=== PATIENT | female | born 1940 | race Caucasian/White ===

== ENCOUNTER → 2023-07-05 14:14 | Outpatient (REF) | payer MEDICARE, OTHER, SELFPAY | LOC: HWRAD 14:14 | PROVIDERS: ATTENDING PHYSICIAN Physician Assistant Medical; FAMILY PHYSICIAN Internal Medicine | DX: R05.1 Acute cough (principal); J84.9 Interstitial pulmonary disease, unspecified | CPT/HCPCS: 71046 ==

== ENCOUNTER → 2023-07-12 16:13 | Outpatient (REF) | payer MEDICARE, OTHER, SELFPAY ==
[2023-07-12 16:43] LABS: % Basophils 0.7 % (0-2); % Eosinophils 0.2 % (0-6); % Immature Granulocytes 0.5 % (0-0.5); % Lymphocytes 14.7 % (20.5-51.1); % Monocytes 11.4 % (1.7-9.3); % Neutrophils 72.5 % (42.2-75.2); Absolute Lymphocytes 0.6 10^3/uL (1.2-3.4); Absolute Monocytes 0.5 10^3/uL (0.1-0.6); Absolute Neutrophils 3.1 10^3/uL (1.4-6.5); Hematocrit 26.5 % (37.0-47.0); Hemoglobin 9.1 g/dL (12.0-16.0); Mean Corp Hgb Conc. 34.3 g/dL (33.0-37.0); Mean Corpuscular Hgb 36.3 pg (27.0-31.0); Mean Corpuscular Volume 105.6 fL (81.0-99.0); Mean Platelet Volume 9.8 fL (7.4-10.4); Nucleated Red Blood Cells % 0 %; Platelet Count 337 10^3/uL (130-400); Red Blood Cell Count 2.51 10^6/uL (4.20-5.40); Red Cell Dist. Width 22.4 % (11.5-14.5); White Blood Cell Count 4.2 10^3/uL (4.8-10.8)
[2023-07-12 16:47] LABS: Urine Albumin Negative (Neg - Trace); Urine Bilirubin Negative (Negative); Urine Character Clear (Clear); Urine Color Yellow; Urine Glucose Negative (Negative); Urine Ketone Negative (Negative); Urine Leukocyte Negative (Negative); Urine Nitrite Negative (Negative); Urine Occult Blood Negative (Negative); Urine Urobilinogen Negative (Neg - 1+)
[2023-07-12 16:58] LABS: ALT (SGPT) 33 U/L (0-35); AST (SGOT) 39 U/L (14-36); Albumin 3.8 g/dl (3.5-5.0); Alkaline Phosphatase 99 U/L (38-126); Blood Urea Nitrogen 27 mg/dl (7-17); Calcium 9.7 mg/dl (8.4-10.2); Carbon Dioxide 24 mmol/L (22-30); Chloride 103 mmol/L (98-107); Glucose 135 mg/dl (70-99); Sodium 134 mmol/L (135-145); Total Bilirubin 0.7 mg/dl (0.2-1.3); Total Protein 6.2 g/dl (6.3-8.2)
[2023-07-12 17:04] LABS: Erythrocyte Sed Rate 58 mm/hour (0-20)
[2023-07-12 17:06] LABS: Complement C3 139 mg/dl (88-165); Urine Squamous Cell 0-2 /LPF (Few)
[2023-07-12 17:07] LABS: Urine Red Blood Cell None Seen /HPF (0-2); Urine White Cell 0-2 /HPF (0-5)
[2023-07-12 17:08] LABS: Protein/creatinine Ratio 0.3; Urine Protein 10 mg/dl
[2023-07-12 17:31] LABS: Anisocytosis 2+; Macrocytosis 2+; Normal RBC Morphology No; Ovalocytes 1+; Stomatocytes 2+
[2023-07-15 01:34] LABS: Myeloperoxidase Antibody 50 AU/mL (0-19)
== END ==
LOC: REG 16:13
PROVIDERS: ATTENDING PHYSICIAN Internal Medicine Rheumatology; FAMILY PHYSICIAN Internal Medicine
DX: L92.9 Granulomatous disorder of the skin and subcutaneous tissue, unspecified (principal); M1A.9XX0 Chronic gout, unspecified, without tophus (tophi); M31.7 Microscopic polyangiitis; M47.816 Spondylosis without myelopathy or radiculopathy, lumbar region; M79.7 Fibromyalgia; M81.0 Age-related osteoporosis without current pathological fracture; R20.0 Anesthesia of skin; Z68.42 Body mass index [BMI] 45.0-49.9, adult
CPT/HCPCS: 36415; 80053; 81003; 81015; 82570; 83516; 84156; 85025; 85652; 86140; 86160

== ENCOUNTER 2023-07-19 21:14 | Inpatient (IN) | payer MEDICARE, OTHER, SELFPAY ==
[2023-07-19 14:06] VITALS: BP 123/71
[2023-07-19 14:37] LABS: ALT (SGPT) 30 U/L (0-35); AST (SGOT) 33 U/L (14-36); Albumin 3.8 g/dl (3.5-5.0); Alkaline Phosphatase 92 U/L (38-126); Blood Urea Nitrogen 28 mg/dl (7-17); Calcium 9.2 mg/dl (8.4-10.2); Carbon Dioxide 22 mmol/L (22-30); Chloride 104 mmol/L (98-107); Glucose 133 mg/dl (70-99); Potassium 4.7 mmol/L (3.5-5.1); Sodium 136 mmol/L (135-145); Total Bilirubin 0.8 mg/dl (0.2-1.3); eGFR 45.48
[2023-07-19 17:39] VITALS: BP 144/71
[2023-07-19 17:41] VITALS: BMI 40.5
[2023-07-19 18:00] VITALS: BP 135/69
--- NOTE | 2023-07-19 18:08 | EDRN ---
Dr. Clements in room w/pt at this time.
--- NOTE | 2023-07-19 18:23 | ED.GENMED ---
History of Present Illness
General
Chief Complaint: Abnormal Lab Value
Source: patient
Exam Limitations: none
Time Seen by Provider: 07/19/23 17:24
Nursing documentation reviewed up to this point in time: agreed with
Travel History
Have you had any contact with someone who has COVID-19?: No
Do you have any symptoms of coronavirus? Fever > 100 degrees, chills, cough, shortness of breath, sore throat, loss of taste or smell, muscle aches, or headache?: No
History of Present Illness
History of Present Illness:
Patient presents to ED secondary to worsening shortness of breath with exertion over the past 2 weeks, along with recent outpatient blood work which revealed decreasing hemoglobin. Patient denies fever or chills. Denies coughing. Denies
dizziness. Denies weakness. Denies chest pain. Denies nausea, vomiting, or diarrhea. Denies leg pain or swelling. Denies back pain. Of note, patient was diagnosed with pulm embolism in May, and has been taking Eliquis since then. In
addition, patient is currently under treatment secondary to vasculitis diagnosed 2 years ago. As such, patient has had shortness of breath in the past, but states that her symptoms currently are worse than what she has experienced in the past.
Past History
Past History
ED Past Medical History: HTN, Hypercholesterolemia and Other (anemia)
ED Past Surgical History: None
Social History
Tobacco: Non-smoker
Personal:
Living: with family
Employment: Employed
Review of Systems
Review of Systems
Allergies reviewed?: Yes
All Other Systems: ROS reviewed and negative except as documented in HPI and ROS
Constitutional: Reports no symptoms
EENT: Reports no symptoms
Respiratory: Reports trouble breathing
Cardiac: Reports no symptoms
ABD/GI: Reports no symptoms
Musculoskeletal: Reports no symptoms
Skin: Reports no symptoms
Neurological: Reports no symptoms
Phy Exam
Physical Exam
Physical Exam:
Physical Exam
General: no apparent distress, not acutely ill. afebrile
Head: nc/at. eomi
Neck: supple. no meningeal signs.
Heart: s1/s2 regular rate and rhythm, no murmur. equal radial pulses.
Lungs: no acute respiratory distress. clear bilaterally
Abdomen: normal bowel sounds. not tender. rectal exam (CAMDEN Garcia, at bedside): brown stool, trace heme positive
Neuro: alert and oriented. no focal neurological deficits
Skin: no rash
Psychiatric: well kept. interactive and cooperative
Extremities: no edema. no calf tenderness.
Course
Orders/Labs/Results
Orders:
Orders
07/19/23 Breakfast
Clear Liquid
At Your Request: Full Participation
07/19/23 14:16
Type+Screen Urgent
Comprehensive Metabolic Panel Urgent
Ferritin Urgent
Comment: ADD ON
Iron Urgent
Comment: ADD ON
Total Iron Binding Urgent
07/19/23 19:05
Electrocardiogram (*1) Urgent
Reason for Study: Shortness of Breath
EKG- Treatment ONCE
07/19/23 19:20
NT-proBNP Urgent
Comment: ADD ON
Troponin I Urgent
07/19/23 19:26
CR Chest - 2 Views Urgent
Comment:
Reason For Exam: sob
07/19/23 19:27
Add On- LAB Urgent
Tests Added?: ProBNP
07/19/23 19:55
Dexamethasone Sod Phosphate [Decadron] 6 mg IV NOW STA
07/19/23 19:56
0.9% Sodium Chloride 500 ml [Nss] 500 ml IV BOLUS
07/19/23 19:58
Add On- LAB Urgent
Tests Added?: ferritin, TIBC, iron
07/19/23 20:49
Admit/Transfer Patient As Directed
Co-Sign Provider:
Level of Care: Inpatient admission
Assign to:: Medical/Surgical
Physician / Group: [facility]
Diagnosis: anemia
Reason for Hospitalization: symptomatic anemia
Expected length of stay greater than two midnights?: Yes
ELOS- Estimated Length of Stay in days: 3
I certify the patient meets the requirements for IP care: Yes
07/19/23 20:50
Code Status As Directed
Resuscitation Status: Full Code
07/19/23 21:21
0.9% Sodium Chloride 1000 ml [Nss] 1,000 ml IV 80 mls/hr
Dextrose 50%-Water [Dextrose 50% Syringe] 12.5 grams IV [id number] PRN
Glucagon [GlucaGen] 1 mg IM PRN PRN
Pantoprazole [Protonix IV] 40 mg IV Q12
07/19/23 21:21
Consult Hematology [HEMATOLOGY CONSULT] Routine
Consulting Provider: Michael Hammond
Was physician already notified: Yes
Reason for consult: GI bleed, on eliquis for recent PE
GASTROINTESTINAL CONSULT Routine
Consulting Provider: Yakelin Mcdaniel
Was physician already notified: Yes
Reason for consult: GI bleed , on eliquis
VTE Contraindication Routine
VTE Mechanical Device Contraindication: DVT lower extremity
Pharmocologic Contraindication: Medical Contraindication
Activity As Directed
Activity Level: Out of Bed-Early Mobility
Bedside Glucose Monitoring As Directed
Frequency: AC&HS
Comment: Change to q6h if pt on TPN, tube feeding or not eating
INT (Intravenous Needle Therapy) As Directed
Comment: Place 2 IV catheters of the largest bore possible until stable
Orthostatic Vital Signs As Directed
Orthostatic VS Frequency: Now
Comment: then every four hours for twenty-four hours
Vital Signs As Directed
Frequency: Per unit guidelines
07/19/23 22:00
Melatonin 5 mg PO HS
07/19/23 23:06
H&H Q8H
07/20/23 Breakfast
NPO
Allow oral meds: No
Allow clear liquids: 4hrs prior to procedure
NPO with Ice Chips: Yes
Comment: may have unrestricted clear liquid up to 4 hrs prior to scheduled procedure
07/20/23 06:09
Basic Metabolic Panel IN AM
Complete Blood Count/No Diff IN AM
Folate IN AM
Glycohemoglobin (HgbA1c) IN AM
Magnesium IN AM
Phosphorus IN AM
TSH IN AM
Vitamin B12 IN AM
07/20/23 07:30
Insulin Aspart Corrective Mod [Novolog Flexpen-Moderate Resistance] See Protocol SC AC
07/20/23 08:00
Allopurinol [Zyloprim] 100 mg PO DAILY
Amlodipine [Norvasc] 5 mg PO DAILY
Atorvastatin [Lipitor] 10 mg PO DAILY
Azathioprine [Imuran] 50 mg PO BID
Metoprolol Xl [Toprol Xl] 50 mg PO DAILY
Prednisone [Deltasone] 10 mg PO DAILY
Abnormal Lab Results
07/19/23
14:16
BUN 28 H mg/dl
(7-17)
Creatinine 1.2 H mg/dL
(0.6-1.0)
Glucose 133 H mg/dl
(70-99)
Iron 192 H ug/dl
(37-170)
TIBC 250 L ug/dl
(265-497)
% Saturation 76 H %
(20-50)
Ferritin 747.0 H ng/ml
(11.1-264.0)
Total Protein 6.0 L g/dl
(6.3-8.2)
07/19/23 14:16
Vital Signs
Initial and Last Documented VS:
Initial Vital Signs
Temp Pulse Resp BP Pulse Ox
98.0 F 86 16 123/71 98
07/19/23 14:06 07/19/23 14:06 07/19/23 14:06 07/19/23 14:06 07/19/23 14:06
Last Documented Vital Signs
Temp Pulse Resp BP Pulse Ox
97.8 F 97 18 156/90 97
07/20/23 14:50 07/20/23 14:50 07/20/23 14:50 07/20/23 14:50 07/20/23 14:50
MDM/Problems Addressed
MDM/Problems Addressed:
During short ambulation ED, patient noted to become dyspneic with increased respiratory rate as well as hypoxia (82% on room air), which improved upon returning to her stretcher. Patient presenting symptoms may be factorial, including underlying
vasculitis along with ongoing anemia. As such, patient will be admitted for further evaluation and treatment.
*EKG
Interpreted by ED Provider?: Yes
EKG Intrepretation Date: 07/19/23
Interpretation: normal
Heart Rate: 71
Rate: normal
Rhythm: sinus
[place]: normal axis
Interval: normal interval
QRS Pattern: normal QRS
*Critical Care Note
Total Time (30-74mins, 75-104mins- exclusive of procedures): Not Applicable
ED Attending Note
-
Portions of this chart may have been created with voice recognition software.� Occasional wrong word or��sound alike� substitutions may have occurred due to the inherent limitations of voice recognition software.
Discharge Plan
Departure
Patient Disposition: Admit
Date of Disposition: 07/19/23
Time of Disposition: 19:57
Admit to: Telemetry
Presentation/result/management discussed w/ accepting MD/DO: Hospitalist
Discharge Problem:
Hypoxia, Anemia
Interventions
Interventions:
*Risk Screen - Suicide Last Done: 07/20/23 13:02
*General Assessment Last Done: 07/19/23 17:42
*Neglect/Abuse Screening Last Done: 07/19/23 17:42
ED- Fall Risk Assessment Last Done: 07/19/23 17:43
*ED COVID-19 Vaccine History Last Done: 07/20/23 13:02
*Nursing Disposition Last Done: 07/20/23 12:50
Discharge Date and Time
Discharge Date/Time: 07/20/23 12:51
--- NOTE | 2023-07-19 18:52 | EDRN ---
This RN ambulated pt on POX in hallway. Pt ambulated using her walker. Pt was able to ambulated from her room #36 to doctor area w/out difficulty. Pt was okay (unable to get a pulse ox while she was ambulating due to bad pleth) until she reached
outside of room #37. Pt became very SOB w/ increased work of breathing. Pt had to stop walking to catch her breath. Pt was able to make it to her stretcher in room #36 and sit and lie down but still w/ increase WOB and tachypnea. Pt was still enough
to get a pulse ox that was initially 83% on room air and slowly climbed to 94% all w/ good pleth over next minute w/ breathing easier for pt and decreased BPM (breaths per minute).
[2023-07-19 19:00] VITALS: BP 115/62
[2023-07-19 19:54] LABS: Troponin I 0.026 ng/ml
[2023-07-19] MEDS: NSS 500 IV (20:11)
[2023-07-19] MEDS: DECADRON 6 MG IV (20:12)
[2023-07-19 20:19] LABS: NT-proBNP 282 pg/ml
[2023-07-19 20:50] LABS: Iron 192 ug/dl (37-170)
[2023-07-19 21:01] LABS: Percent Saturation 76 % (20-50); Total Iron Binding Capacity 250 ug/dl (265-497)
--- NOTE | 2023-07-19 21:01 | HPS.HSE ---
Family Physician
-
Family Physician: Yamila Aquino
Chief Complaint
-
Generalized weakness and fatigue
History of Present Illness
83-year-old female who was diagnosed with DVT and PE in May of this year, also history of diabetes, microscopic polyangiitis and vasculitis, presented to the hospital complaining of generalized weakness, fatigue and his availability over the
last couple months but progressively worsening the last few days, denies any fever or chills or cough or congestion, admits she is not able to do what she used to routinely. Anything make you tired and need to take a break.
Look like in May diagnosed with DVT and PE while he was in the hospital for chronic diarrhea since recently seen in CT scan.
Denies any discomfort during right side chest pain or shortness of breath or cough or congestion, she has no recollection of any fresh rectal bleed no change in stool color.
No sick contacts or recent travel.
She is on Eliquis for DVT.
Workup in the ER basically showed hemoglobin around 9 while in May was more than 12, also blood stool was positive in ER.
She is Jehovah witness, declining any kind blood and blood product transfusion.
She had colonoscopy many years ago followed by [facility] recently.
Medical History
Past Medical History
Past Medical History: Reports Other
Additional Past Medical History:
Past medical history reviewed:
Osteoporosis
Gout
Fibromyalgia
Diabetes mellitus on metformin
Dyslipidemia
Connective tissue disease including microscopic polyangiitis, vasculitis, uveitis.
Obesity
Chronic kidney disease stage II-III
Rosacea
Right side facial skin cancers, squamous cell and plan for Mohs procedure and all of July.
Actinic keratosis
Sleep apnea off CPAP,
Surgical history:
Colonoscopy many years ago
Total abdominal hysterectomy with BSO
Ostectomy
Right total knee replacement
Cataract surgery bilaterally
(Resection
Fusion of the right wrist.
Left wrist pain resection
Large aneurysm repair
[facility] procedure of the left inferior eyelid solitary keratosis.
Social history: Lives with her daughter and her daughter's family, no smoking or alcohol use.
Family history: Reviewed and noncontributory
Past Surgical History: Reports Other
Social History
Unable to obtain full social history at this time due to: Other
Family History
Family History: Other
Allergies / Home Medications
Allergies reflects when Allergies were last updated in [facility].
Home Medications with original date entered in [employer]
Allergy/Medication List:
Allergies
Allergy/AdvReac Type Severity Reaction Status Date / Time
carisoprodol [From Soma] Allergy stomach Verified 05/18/23 11:36
problems
cefazolin Allergy Itching Verified 05/18/23 11:36
gatifloxacin [From Tequin] Allergy stomach Verified 05/18/23 11:36
problems
lisinopril [From Prinivil] Allergy stomach Verified 05/18/23 11:36
problems
loratadine [From Claritin] Allergy aggrevates Verified 05/18/23 11:36
BP
piroxicam [From Feldene] Allergy stoamch Verified 05/18/23 11:36
issue
pravastatin [From Pravachol] Allergy MUSCLE Verified 05/18/23 11:36
PAIN,AGGRAVATES
FIBROMYALGIA
simvastatin [From Zocor] Allergy MUSCLE Verified 05/18/23 11:36
PAIN,AGGRAVATES
FIBROMYALGIA
strawberry Allergy THROAT Verified 05/18/23 11:36
CLOSES
tetracycline Allergy stomach Verified 05/18/23 11:36
problems
tramadol HCl [From Ultram] Allergy Difficulty Verified 05/18/23 11:36
breathing,hallucination
watermelon Allergy THROAT Verified 05/18/23 11:36
CLOSES
hayfever Allergy sneezing, Uncoded 05/18/23 11:36
eye
irritation
pain meds Allergy Hallucinations,difficulty Uncoded 05/18/23 11:36
breathing
Home Medications
allopurinol 100 mg tablet 100 mg PO DAILY Gout 12/29/19
melatonin 5 mg tablet 5 mg PO HS Sleep 12/29/19
metoprolol succinate 50 mg tablet,extended release 24 hr 50 mg PO DAILY Blood pressure 12/29/19
amlodipine 5 mg tablet 5 mg PO DAILY Blood Pressure 05/18/23
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
cholecalciferol (vitamin D3) 25 mcg (1,000 unit) tablet 25 mcg PO DAILY Supplement 05/18/23
famotidine 20 mg tablet 20 mg PO BID Gastrointestinal Issue 05/18/23
metformin 500 mg tablet 500 mg PO BID Diabetes 05/18/23
pitavastatin calcium 2 mg tablet (Livalo) 2 mg PO DAILY High Cholesterol 05/18/23
apixaban 5 mg tablet 5 mg PO BID 07/19/23
prednisone 5 mg tablet 10 mg PO DAILY 07/19/23
Review of Systems
-
A 12 point ROS was completed and negative except as noted: Yes
Physical Exam
Vital Signs
Vital Signs
Temp Pulse Resp BP Pulse Ox
98.0 F 75 19 144/71 100
07/19/23 14:06 07/19/23 17:45 07/19/23 17:45 07/19/23 17:39 07/19/23 17:46
Physical exam:
General: Pale looking, awake, alert and oriented x3, not in distress and holds appropriate conversation.
HEENT: Right cheek skin lesion, noted discharge no active discharge, ecchymosis or bruising, moist lips, tongue and mucous membrane.
Eyes: No discharge or red conjunctiva, no nystagmus, pupils are reactive and equal
Neck:Supple, no JVD no bruit no goiter.
Respiratory: Normal AP contour and diameter, normal chest wall movement, normal respiratory effort, no respiratory distress,
Lungs: Good air entry bilaterally, no wheezing or rhonchi, no rales or crackles
Heart: S1, S2 regular, normal rate, no added sound.
Gastrointestinal: Positive bowel sounds, soft, nontender, no guarding or rigidity or organomegaly
Musculoskeletal: , no chest wall abnormality or tenderness. All joints and extremities have good range of motion, no muscle tenderness or any joint swelling or tenderness.
Extremities: No pitting edema, good peripheral pulses, good range of motion
Skin: Warm and dry, no ulceration, normal color.
Neurological: Awake, alert and oriented x3, no facial droop speech clear and comprehensive, good muscle tone, normal sensory and motor function
Psychiatric: Normal mood, normal thought and judgment, normal affect,
Physical Exam
General: Other
Laboratory Results
-
07/19/23 14:16
Laboratory Results
Total Bilirubin 0.8 mg/dl (0.2-1.3) 07/19/23 14:16
AST 33 U/L (14-36) 07/19/23 14:16
ALT 30 U/L (0-35) 07/19/23 14:16
Alkaline Phosphatase 92 U/L (38-126) 07/19/23 14:16
Troponin I 0.026 ng/ml 07/19/23 19:20
chest x-ray: No acute cardiopulmonary normality.
EKG showed normal sinus rhythm rate around 71, [place] 168, QTc 423 otherwise no acute abnormality
Data Reviewed
-
Diagnostic Radiology: Image Personally Visualized and interpreted and Discussed with Patient
Medical Tests (Nuc Med, Echo, EKG etc): Image Personally Visualized and interpreted and Discussed with Patient
Lab Data: Labs Reviewed by me and Discussed with Patient
Old Records: Reviewed
Impression/Plan
-
IMPRESSION:
83-year-old female presented to the hospital with fatigue and generalized weakness likely secondary to anemia and GI blood loss anemia could be a possibility other causes need to be considered,,, she was diagnoses with embolism and DVT
anticoagulated on Eliquis beginning of May of this year.
Acute blood loss anemia, hemoglobin was more than 12 in May today is around 9.
GI bleed, likely triggered by being on Eliquis
Dilaudid active pulm embolism as she has no shortness of breath or tachycardia or hypoxia.
Infectious cause may need to be considered rule out
Chronic kidney disease
Diabetes
Hypertension
Obesity
Connective tissue disease including polyangiitis and vasculitis.
PLAN:
Close monitoring
Repeat H&H
She is Jehovah witness and declining any kind of blood or blood product transfusion
IV fluid
GI consult
Clear liquids for now and n.p.o. after midnight
Iron panel was done and reviewed and iron level is 192 saturation 76.
B12 and folic acid
Protonix IV twice daily
Hold Eliquis, unfortunately was diagnosed with PE recently, this can be normal concerning, but as she has no evidence of active pulm embolism therefore we will get hematology consult to address this either restarted to monitor or may consider IVC
filter will defer to hematology.
Patient sent from otology's office
Monitor blood sugar
Monitor vital sign.
All discussed with the patient in detail and expressed understanding
CODE STATUS full code
DVT prophylaxis avoid pharmacological anticoagulation because of active bleeding also avoid SCD was sedated because of recent DVT.
[2023-07-19] MEDS: MELATONIN 5 MG PO (21:45)
[2023-07-19] MEDS: PROTONIX IV 40 MG IV (21:45)
[2023-07-19] MEDS: NSS 1000 IV (21:47)
[2023-07-19 21:51] VITALS: BP 143/65
[2023-07-19 23:28] LABS: Hematocrit 23.3 % (37.0-47.0); Hemoglobin 8.3 g/dL (12.0-16.0)
--- NOTE | 2023-07-20 02:30 | EDRN ---
Report received, patient sleeping, call de paz in reach will continue to monitor
[2023-07-20] MEDS: NSS (PRESERVATIVE FREE) IV (03:08)
[2023-07-20 06:24] LABS: Hematocrit 24.1 % (37.0-47.0); Hemoglobin 8.5 g/dL (12.0-16.0); Mean Corp Hgb Conc. 35.3 g/dL (33.0-37.0); Mean Corpuscular Hgb 37.1 pg (27.0-31.0); Mean Corpuscular Volume 105.2 fL (81.0-99.0); Mean Platelet Volume 9.9 fL (7.4-10.4); Platelet Count 250 10^3/uL (130-400); Red Blood Cell Count 2.29 10^6/uL (4.20-5.40)
[2023-07-20 06:33] LABS: Blood Urea Nitrogen 22 mg/dl (7-17); Carbon Dioxide 23 mmol/L (22-30); Chloride 109 mmol/L (98-107); Estimated Creatinine Clearance 51 ml/min; Glucose 146 mg/dl (70-99); Magnesium 1.8 mg/dl (1.6-2.3); Phosphorus 3.7 mg/dl (2.5-4.5); Sodium 136 mmol/L (135-145)
[2023-07-20 06:34] VITALS: BP 155/68
--- NOTE | 2023-07-20 06:35 | EDRN ---
Patient ambulated to the restroom to urinate, provided her with a new brief, back in bed resting comfortably with call de paz in reach, vital signs checked and stable, patient with no further needs.
[2023-07-20 06:40] LABS: White Blood Cell Count 2.3 10^3/uL (4.8-10.8)
[2023-07-20 07:03] LABS: TSH 0.51 uIU/ml (0.47-4.68)
[2023-07-20 07:38] LABS: Folate 11.4 ng/ml (2.76-20); Vitamin B12 > 1000 pg/ml (239-931)
[2023-07-20 07:55] VITALS: BP 128/61
[2023-07-20 07:58] VITALS: BMI 39.2
--- NOTE | 2023-07-20 08:03 | CON.GI ---
Addendum entered and electronically signed by Yakelin Mcdaniel MD 07/20/23 20:44:
correction to my note below she is for EGD and colonoscopy (not Wed) with bowel prep tomorrow, after Eliquis wash out and she had regular meal today
Addendum entered and electronically signed by Yakelin Mcdaniel MD 07/20/23 10:19:
I saw and examined the patient.
The PRIVATE WATCHMAN's note was reviewed and I agree with the note.
Comment: This is a 83-year-old female past with recent history of DVT and PE in May was initially treated with heparin and then started on Eliquis follows up with Dr. Edgar, vasculitis currently on chronic steroids and azathioprine sees
rheumatology and has received Rituxan in the past, CDI. She also has a history of anemia noted input from hematology has received IV iron and Procrit in 2020 ( Jehovah witness no blood products). Rest of past medical history as below who presents
with fatigue and is noted to have anemia and trace OB positive stool. She denies any rectal bleeding or melena.
Assessment and plan anemia likely multifactorial from probable chronic GI blood loss but iron studies more consistent with anemia of chronic disease. She has received iron infusions and Procrit in 2020 with good response. Will need to rule out
chronic GI blood loss from probable angiectasias vs neoplasm vs PUD. will schedule her for endoscopy and colonoscopy on Wednesday after Eliquis washout her last dose of Eliquis yesterday a.m. dose, if neg will need capsule endoscopy also as OP.
Currently has no overt active bleeding. On famotidine will start her on PPI for possible peptic ulcer disease from chronic steroid use. She never had an endoscopy last [facility] was over 10 years ago. Defer decision for bridging with heparin versus
Lovenox given her recent history of DVT and PE per hematology if she does start heparin will stop it for 4 hours prior to procedures.
Addendum entered and electronically signed by Annie Shook NP 07/20/23 09:23:
Noted with diffuse hepatic steatosis on prior CT imaging, along with obesity and diabetes. LFT's are normal along with normal platelets. Fib-4 score 1.95 excluding advanced Fibrosis but score may be affected with her age. Would benefit from
outpatient Fibroscan/GI eval.
Original Note:
Consultation
-
Date/Time Consultation Requested: 07/19/2023 @ 21:21
Date/Time Consultation Performed: 07/20/2023 @ 08:30
Requesting Provider: Dr. Indigo Holloway
Performing Provider: DEDE Lema; Dr. Mcdaniel
Reason for Consultation: gi bleed on eliquis
Medical History
Chief Complaint / HPI
Chief Complaint: generalized weakness, fatigue
History of Present Illness:
The patient is an 83-year-old female with a past medical history significant for recent DVT/PE on Eliquis (May 2023), diabetes type 2, microscopic polyangiitis and vasculitis on chronic prednisone, gout, osteoporosis, fibromyalgia, hyperlipidemia,
chronic kidney disease, sleep apnea, hx of ROD with evaluation in [address] Edgar, who presented to the emergency room with complaints of generalized weakness and fatigue. We are being asked to evaluate for GI bleed on Eliquis. The patient
reports that in the the fall she developed COVID and was treated with Paxlovid. She notes she had a subsequent upper respiratory infection was placed on amoxicillin and then subsequently developed diffuse diarrhea. She was evaluated for her
diarrhea and was found to be C. difficile positive. She also underwent a CT scan in May which showed a coincidental finding of PE. She did complete a course of oral vancomycin with improvement in her bowel habits. She was evaluated by
hematology and started on Eliquis for her blood clots. She notes since starting on Eliquis she has felt progressive fatigue, weakness, and decreased appetite. She notes that the symptoms have been progressively worse over the past few weeks and
she has had some mild shortness of breath as well. She was advised by her stock trader for further evaluation in the ER after outpatient blood work showed a dropping hemoglobin. She denies any signs of bleeding such as melena, hematochezia, or
hematemesis. She denies any significant abdominal pain, nausea, vomiting, dysphagia, odynophagia heartburn, unintentional weight loss, chest pain, dizziness, lightheadedness, or syncope. She notes a history of iron deficiency anemia in 2019 and
does follow with Dr. Edgar from hematology. She did require iron transfusions at that time and due to being a Judaism she declines blood transfusions. She notes that she was using Aleve infrequently prior to May but has not used
NSAIDs since being on Eliquis. She denies any history of peptic ulcer disease or GI bleeding. She reports remote history of colonoscopy and denies any polyps. She reportedly has been followed with Cologuard's that are negative. She denies any
prior EGD. She admits to taking prednisone chronically for the past 3 years for vasculitis and is currently on 10 mg/day. She denies any alcohol use, history of smoking, or drug use. She denies any family history of colon cancer or other GI
cancers or disorders. Routine labs on admission showed hemoglobin of 8.3, WBC 2.3, MCV 105, platelets 250,000, sodium 136, potassium 4.7, BUN 28, creatinine 1.2, glucose 133, serum iron 192, TIBC 250, iron saturation 76%, ferritin for 747, vitamin
B12 greater than thousand, folate 11.4, TSH 0.51, proBNP 282, troponin negative x 1, with normal LFTs. Chest x-ray was done showing no acute cardiopulmonary process. She was started on twice daily PPI, made n.p.o., admitted for further evaluation
by GI and hematology.
Past Medical History
Past Medical History: Fibromyalgia, GERD, HTN, Hypercholesterolemia, NIDDM and Other (Osteoporosis, gout, recent DVT/PE on Eliquis, connective tissue disorder, obesity, rosacea, actinic keratosis, squamous cell skin CA's status post Mohs procedure,
chronic kidney disease)
Past Surgical History: Appendectomy, Cholecystectomy, Gynecological (Total abdominal hysterectomy with BSO, ruptured ovarian cyst with removal), Orthopedic (Right total knee replacement) and Other (Bilateral cataract surgery, skin cancer extraction
(pending Mohs procedure))
Social History
Tobacco: Non-Smoker
Alcohol: None
Drug: None
Living: With Family
Family History
Family History: Reviewed & Not Pertinent
Allergies / Home Medications
Allergy/AdvReac Type Severity Reaction Status Date / Time
carisoprodol [From Soma] Allergy stomach Verified 05/18/23 11:36
problems
cefazolin Allergy Itching Verified 05/18/23 11:36
gatifloxacin [From Tequin] Allergy stomach Verified 05/18/23 11:36
problems
lisinopril [From Prinivil] Allergy stomach Verified 05/18/23 11:36
problems
loratadine [From Claritin] Allergy aggrevates Verified 05/18/23 11:36
BP
piroxicam [From Feldene] Allergy stoamch Verified 05/18/23 11:36
issue
pravastatin [From Pravachol] Allergy MUSCLE Verified 05/18/23 11:36
PAIN,AGGRAVATES
FIBROMYALGIA
simvastatin [From Zocor] Allergy MUSCLE Verified 05/18/23 11:36
PAIN,AGGRAVATES
FIBROMYALGIA
strawberry Allergy THROAT Verified 05/18/23 11:36
CLOSES
tetracycline Allergy stomach Verified 05/18/23 11:36
problems
tramadol HCl [From Ultram] Allergy Difficulty Verified 05/18/23 11:36
breathing,hallucination
watermelon Allergy THROAT Verified 05/18/23 11:36
CLOSES
hayfever Allergy sneezing, Uncoded 05/18/23 11:36
eye
irritation
pain meds Allergy Hallucinations,difficulty Uncoded 05/18/23 11:36
breathing
Medication Instructions Recorded
allopurinol 100 mg tablet 100 mg PO DAILY Gout 12/29/19
melatonin 5 mg tablet 5 mg PO HS Sleep 12/29/19
metoprolol succinate 50 mg 50 mg PO DAILY Blood pressure 12/29/19
tablet,extended release 24 hr
amlodipine 5 mg tablet 5 mg PO DAILY Blood Pressure 05/18/23
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
cholecalciferol (vitamin D3) 25 25 mcg PO DAILY Supplement 05/18/23
mcg (1,000 unit) tablet
famotidine 20 mg tablet 20 mg PO BID Gastrointestinal Issue 05/18/23
metformin 500 mg tablet 500 mg PO BID Diabetes 05/18/23
pitavastatin calcium 2 mg tablet 2 mg PO DAILY High Cholesterol 05/18/23
(Livalo)
apixaban 5 mg tablet 5 mg PO BID 07/19/23
prednisone 5 mg tablet 10 mg PO DAILY 07/19/23
Review of Systems
-
History Source: Patient
Constitutional: Reports Weight Gain and Fatigue
EENT: Reports No Symptoms
Respiratory: Reports No Symptoms
Cardiac: Reports No Symptoms
Abdomen/GI: Reports No Symptoms
: Reports No Symptoms
Musculoskeletal: Reports No Symptoms
Skin: Reports No Symptoms
Neurological: Reports Weakness
Vital Signs
Temp Pulse Resp BP Pulse Ox
98.7 F 78 17 114/56 95
07/20/23 07:55 07/20/23 07:55 07/20/23 07:55 07/20/23 07:55 07/20/23 07:55
Physical Exam
Exam
General: Well Developed, Well Nourished, No Apparent Distress and Other (Elderly, pale appearing female in no acute distress)
HEENT: Normocephalic, Anicteric and Atraumatic
Respiratory: Clear
Cardiac: S1/S2 and Regular Rhythm
Breast: Deferred by me
GI: Soft, Non Tender, Non Distended, Normal Bowel Sounds and Other (Obese abdomen)
Rectal: Other (Brown trace heme positive per ER physician)
Skin: Warm and Dry
Neuro: Awake, Alert and Oriented
Psych: Calm
Results
WBC 2.3 10^3/uL (4.8-10.8) L* 07/20/23 06:09
Hgb 8.5 g/dL (12.0-16.0) L 07/20/23 06:09
Hct 24.1 % (37.0-47.0) L 07/20/23 06:09
MCV 105.2 fL (81.0-99.0) H 07/20/23 06:09
Plt Count 250 10^3/uL (130-400) 07/20/23 06:09
Sodium 136 mmol/L (135-145) 07/20/23 06:09
Potassium 5.0 mmol/L (3.5-5.1) 07/20/23 06:09
Chloride 109 mmol/L (98-107) H 07/20/23 06:09
Carbon Dioxide 23 mmol/L (22-30) 07/20/23 06:09
BUN 22 mg/dl (7-17) H 07/20/23 06:09
Creatinine 1.0 mg/dL (0.6-1.0) 07/20/23 06:09
Calcium 9.0 mg/dl (8.4-10.2) 07/20/23 06:09
Total Bilirubin 0.8 mg/dl (0.2-1.3) 07/19/23 14:16
AST 33 U/L (14-36) 07/19/23 14:16
ALT 30 U/L (0-35) 07/19/23 14:16
Alkaline Phosphatase 92 U/L (38-126) 07/19/23 14:16
Diagnostic Image Results:
07/19/23 chest x-ray: No acute cardiopulmonary abnormalities
Prior GI Procedures:
EGD: None
Colonoscopy: Remote history of colonoscopy, per patient no polyps (record not available for review)
Assessment / Plan
-
The patient is an 83-year-old female with a past medical history significant for recent DVT/PE on Eliquis (May 2023), diabetes type 2, microscopic polyangiitis and vasculitis on chronic prednisone, gout, osteoporosis, hypertension, hyperlipidemia,
chronic kidney disease, sleep apnea, hx of ROD with evaluation in [address] Edgar, obesity, who presented to the emergency room with complaints of generalized weakness and fatigue. We are being asked to evaluate for GI bleed on Eliquis. She
was advised to go to the emergency room by her stock trader due to a drop in hemoglobin and ongoing symptoms suggestive of acute blood loss. Noted with a hemoglobin of 8.3 on admission with brown trace heme positive stool. Recently started on
Eliquis in May for new diagnosis of PE. She is also on chronic prednisone for management of vasculitis. She notes a history of iron deficiency anemia in 2020 requiring iron infusions and follows intermittently with hematology on a yearly
basis. She denies any signs of gross GI bleeding at this time. She is hemodynamically stable.
Problem list:
-Acute macrocytic anemia
-Recent diagnosis of PE on Eliquis May 2023
-History of vasculitis on chronic prednisone
-Elevated ferritin and iron saturation
-COLBY
-History of iron deficiency anemia in 2020 requiring iron transfusion
Other pertinent medical history:
-Gout
-Osteoporosis
-Hyperlipidemia
-Hypertension
-Sleep apnea
-Obesity
Recommendations:
-Etiology of anemia possibly multifactorial with iron studies suggesting anemia of chronic disease versus possible slow GI blood loss (peptic ulcer disease versus AVM versus other) versus other underlying hematologic disorder versus other.
-At this time we will await hematology recommendations regarding ongoing blood thinners for recent PE
-To discuss with hematology regarding timing for endoscopic evaluation due to her acute anemia she will need EGD and colonoscopy, likely inpatient given she needs to be on a blood thinner
-Trend H&H and transfuse for hemoglobin less than 7
-Agree with twice daily PPI
-Hold Eliquis; with brown trace heme positive stool okay to be on heparin or Lovenox to bridge for procedures, to defer management to hematology
-Okay for diet today, will change to clear liquid diet tomorrow
-Avoid NSAIDs
-Will follow
-
-
Thank you for consultation and allowing me to participate in the patient's care. Please call the reproduction technician GI physician during the after hours with any questions or concerns.
[2023-07-20] MEDS: NOVOLOG FLEXPEN-MODERATE RESISTANCE SC ×2 (08:17→19:28)
[2023-07-20 08:18] LABS: Glucose - Point of Care 147 mg/dl (70-99)
[2023-07-20] MEDS: ZYLOPRIM 100 MG PO (08:18)
[2023-07-20] MEDS: TOPROL XL 50 MG PO (08:18)
[2023-07-20] MEDS: DELTASONE 10 MG PO (08:18)
[2023-07-20] MEDS: NORVASC 5 MG PO (08:19)
[2023-07-20] MEDS: PROTONIX IV 40 MG IV ×2 (08:19→19:32)
[2023-07-20] MEDS: LIPITOR 10 MG PO (08:19)
[2023-07-20] MEDS: NSS (PRESERVATIVE FREE) 10 ML IV ×2 (08:19→19:32)
--- NOTE | 2023-07-20 08:49 | CON.ONC ---
Addendum entered and electronically signed by Becky Murray MD 07/20/23 13:13:
Patient seen and examined, agree w/ A&P per PEDIATRIC PSYCHOLOGIST as below
83 yo F, Evangelical, who presents with symptomatic anemia (weakness, fatigue). Labs show hgb 8.3, no iron deficiency (ferritin = 747).
She has been on Eliquis since early May, when she was diagnosed with PE/DVT, thought provoked by COVJOE and Cdiff. She's known to Dr. Edgar, and the plan was for 3 months of a/c, then stop.
Heme +
Would hold anticoagulation. She completed 2 months. Risks of bleeding currently outweigh clotting risk
Monitor CBC daily, would not give add'l iron, but would consider MINOR if anemia worsens
Continue folic acid
DVT ppx w/ SCDs
Await EGD, colonoscopy on Wednesday
Original Note:
Impression
Impression
Acute macrocytic anemia
Hx ROD secondary to intrapulmonary hemorrhage +ANCA vasculitis
Chronic steroid use
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
Acute blood loss anemia
+hemoccult stool
CKD
Obesity
Weakness/fatigue
Dyspnea on exertion
Squamous skin lesion to left cheek
Plan
Plan
3/5 Hgb 8.5 (baseline 12-14)
No blood products as Evangelical
Await Epo level, consider Epogen/Procrit
Monitor CBC, H/H closely
Hgb has normalized in the past with management of vasculitis
Continue Prednisone 10mg daily, Azathioprine 50mg
Continue PPI BID
Iron 192, TIBC, 250, %sat 76, ferritin 747
IV iron is not indicated at this time
Hemoccult stool trace positive
Eliquis being held for GI procedures
Would recommend holding all anticoagulation and monitoring
GI planning EGD/colonoscopy for Wednesday
We will follow.
Patient History
History of Present Illness
Sarahi Flowers is a pleasant 83 year old female who presented to the ER yesterday, 07/18, with complaints of progressive generalized weakness/fatigue and shortness of breath x2-3 weeks. She states she is unable to perform her normal daily activities
without requiring frequent rest breaks. She notices she has felt fairly weak since beginning Eliis in May. Denies falls. She denies pain, fever, chills, unintentional weight loss, N/V/D or evidence of bleeding. Denies melena, hematuria or
hemoptysis. She was recently hospitalized at the beginning of May 2023 with C. diff infection and incidental findings of right-sided pulmonary embolism and LLE DVT potentially provoked by COVID. Clots were unprovoked in the absence of trauma,
travel, or surgery. She was admitted, started on heparin gtt at the time, and discharged on Apixaban 5mg BID. She followed up with Dr. Edgar at [facility] last month. She states she has been compliant with anticoagulation. She is currently under
treatment for vasculitis which she states 'has calmed down'. She has no prior personal or family history of VTE. APLA testing was sent from the office. She is maintained on 10mg Prednisone daily and Azathioprine 50mg daily.
She was referred to [facility] originally in 2019 for anemia secondary to vasculitis. Patient is a Spiritism and, therefore, does not accept blood products. She was treated with IV iron and Procrit for support of her hemoglobin. She was
started on high dose steroids for vasculitis with resolution of ongoing blood loss and improvement of lab work. She received Rituxan weekly x4 with Rheumatology. She returned to [facility] in September 2022 for evaluation of leukocytosis. She was on
high-dose steroids at the time. Flow cytometry workup was negative and acute leukocytosis was, ultimately, suspected to be reactive with no further workup required.
Past-Medical/Surgical History
Squamous cell skin ca w/ plans for MOHs procedure (07/2023)
C.diff infection (05/2023)
Gout (Allopurinol)
Fibromyalgia
DM (Metformin)
Dyslipidemia
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
Obesity
CKD3
Rosacea
Actinic keratosis
ANALY, no CPAP
Colonoscopy many years ago
YOCASTA-BSO
Right total knee replacement
Cataract surgery bilaterally
Patient Medication
Medication Instructions Recorded Confirmed Last Taken Type
allopurinol 100 mg tablet 100 mg PO DAILY Gout 12/29/19 07/19/23 07/19/23 History
melatonin 5 mg tablet 5 mg PO HS Sleep 12/29/19 07/19/23 07/18/23 History
metoprolol succinate 50 mg 50 mg PO DAILY Blood pressure 12/29/19 07/19/23 07/19/23 History
tablet,extended release 24 hr
amlodipine 5 mg tablet 5 mg PO DAILY Blood Pressure 05/18/23 07/19/23 07/19/23 History
azathioprine 50 mg tablet 50 mg PO BID Autoimmune Disorder 05/18/23 07/19/23 07/19/23 History
cholecalciferol (vitamin D3) 25 25 mcg PO DAILY Supplement 05/18/23 07/19/23 07/19/23 History
mcg (1,000 unit) tablet
famotidine 20 mg tablet 20 mg PO BID Gastrointestinal Issue 05/18/23 07/19/23 07/19/23 History
metformin 500 mg tablet 500 mg PO BID Diabetes 05/18/23 07/19/23 07/19/23 History
pitavastatin calcium 2 mg tablet 2 mg PO DAILY High Cholesterol 05/18/23 07/19/23 07/19/23 History
(Livalo)
apixaban 5 mg tablet 5 mg PO BID 07/19/23 07/19/23 07/19/23 History
prednisone 5 mg tablet 10 mg PO DAILY 07/19/23 07/19/23 07/19/23 History
Active Medications
Generic Name Dose Route Start Last Admin
Trade Name Freq PRN Reason Stop Dose Admin
Allopurinol 100 mg 07/20/23 08:00 07/20/23 08:18
Allopurinol 100 Mg Tablet PO 08/17/23 07:59 100 mg
DAILY ROMMEL Administration
Amlodipine Besylate 5 mg 07/20/23 08:00 07/20/23 08:19
Amlodipine 5 Mg Tablet PO 08/17/23 07:59 5 mg
DAILY ROMMEL Administration
Atorvastatin Calcium 10 mg 07/20/23 08:00 07/20/23 08:19
Atorvastatin (Lipitor) 10 Mg Tablet PO 08/17/23 07:59 10 mg
DAILY ROMMEL Administration
Azathioprine 50 mg 07/20/23 08:00
Azathioprine 50 Mg Tablet PO 08/17/23 07:59
BID ROMMEL
Dextrose 12.5 grams 07/19/23 21:21
Dextrose 50% (0.5 Grams/Ml) 50 Ml Syringe IV 08/16/23 21:20
[id number] PRN
hypoglycemia
Protocol
Glucagon 1 mg 07/19/23 21:21
Glucagon 1 Mg Vial IM 08/16/23 21:20
PRN PRN
hypoglycemia
Protocol
Sodium Chloride 1,000 mls @ 80 mls/hr 07/19/23 21:21 07/19/23 21:47
Nss IV 1,000 mls
[id number] ROMMEL Administration
Insulin Aspart 0 units 07/20/23 07:30 07/20/23 08:17
Insulin Aspart Moderate Resistance 300 Units/3 Ml Pen.Injctr SC 08/17/23 07:29 Not Given
AC ROMMEL
Protocol
Melatonin 5 mg 07/19/23 22:00 07/19/23 21:45
Melatonin 5 Mg Tablet PO 08/16/23 21:59 5 mg
HS ROMMEL Administration
Metoprolol Succinate 50 mg 07/20/23 08:00 07/20/23 08:18
Metoprolol 50 Mg Extended Release Tablet PO 08/17/23 07:59 50 mg
DAILY ROMMEL Administration
Pantoprazole Sodium 40 mg 07/19/23 21:21 07/20/23 08:19
Pantoprazole Sodium 40 Mg/10 Ml Vial IV 08/16/23 21:20 40 mg
Q12 ROMMEL Administration
Prednisone 10 mg 07/20/23 08:00 07/20/23 08:18
Prednisone 10 Mg Tablet PO 08/17/23 07:59 10 mg
DAILY ROMMEL Administration
Sodium Chloride 0 flush 07/19/23 22:00
Sodium Chloride 0.9% (Flush) Syringe IV 08/16/23 21:59
PER PROTOCOL ROMMEL
Sodium Chloride 10 ml 07/19/23 22:00 07/20/23 08:19
Sodium Chloride 0.9% (Preservative Free) 10 Ml Vial IV 08/16/23 21:59 10 ml
BID ROMMEL Administration
Review of Systems
-
History Source: Patient, Coordinated Provider and Records
Constitutional: Reports No Appetite, Fatigue and Weakness
EENT: Reports No Symptoms
Respiratory: Reports Other (VIRAMONTES)
Cardiac: Reports No Symptoms
GI: Reports No Symptoms
Breast: Reports N/A
: Reports No Symptoms
Musculoskeletal: Reports No Symptoms
Skin: Reports No Symptoms
Neuro: Reports No Symptoms
Endocrine: Reports No Symptoms
Hematologic/Lymphatic: Reports No Symptoms
Allergy / Immunology: Reports No Symptoms
Psych: Reports No Symptoms
Physical Exam
-
Patient is resting comfortably on stretcher. tolerating clear liquids. Denies acute pain or difficulty breathing.
General: Well Developed, Well Nourished, No Apparent Distress, Comfortable and Conversant
HEENT: Other (left cheek skin cancer lesion scheduled for MOHs surgery); Negative Jaundice
Cardiology: S1 and S2
Pulmonary: Clear and Other (room air)
GI: Normal Bowel Sounds
Genito-Urinary: Deferred by me
Musculoskeletal: No Edema
Extremities: Pulses Present
Neurology: Non Focal
Skin: Warm, Dry and Other (pallor)
Hematologic / Lymphatic: No Petechiae and Other
Psych: Calm
Labs
Lab Results
WBC 2.3 10^3/uL (4.8-10.8) L* 07/20/23 06:09
RBC 2.29 10^6/uL (4.20-5.40) L 07/20/23 06:09
Hgb 8.5 g/dL (12.0-16.0) L 07/20/23 06:09
Hct 24.1 % (37.0-47.0) L 07/20/23 06:09
MCV 105.2 fL (81.0-99.0) H 07/20/23 06:09
MCH 37.1 pg (27.0-31.0) H 07/20/23 06:09
MCHC 35.3 g/dL (33.0-37.0) 07/20/23 06:09
RDW 23.0 % (11.5-14.5) H 07/20/23 06:09
Plt Count 250 10^3/uL (130-400) 07/20/23 06:09
MPV 9.9 fL (7.4-10.4) 07/20/23 06:09
Creatinine 1.0 mg/dL (0.6-1.0) 07/20/23 06:09
Vital Signs
Vital Signs
Temp Pulse Resp BP Pulse Ox
98.7 F 72 17 128/61 98
07/20/23 07:55 07/20/23 07:55 07/20/23 07:55 07/20/23 07:55 07/20/23 07:55
07/19/23 CXR No acute cardiopulmonary process.
[2023-07-20 08:56] LABS: Glycohemoglobin (HgbA1c) 7.6 % (4.0-5.6)
[2023-07-20] MEDS: IMURAN 50 MG PO ×2 (08:58→19:32)
[2023-07-20 10:06] LABS: INR 1.16; PT 14.7 Sec (11.4-14.6)
[2023-07-20 10:20] LABS: Uric Acid 6.5 mg/dl (2.5-6.2)
[2023-07-20] MEDS: FOLVITE 1 MG PO (10:28)
[2023-07-20] MEDS: NSS 1000 IV (10:28)
[2023-07-20 11:55] LABS: Glucose - Point of Care 179 mg/dl (70-99)
[2023-07-20] MEDS: NOVOLOG FLEXPEN-MODERATE RESISTANCE 1 UNITS SC (11:59)
--- NOTE | 2023-07-20 12:27 | W.PN.HOSP.TC ---
Today's Communication/Plan
-
Monitor hemoglobin
N.p.o. after midnight
Assessment / Plan
Assessment / Plan
Gen-AAOx3, NAD, morbid obesity
HEENT-NC, AT, anicteric, clear oral mm
Neck-supple
CV-reg, no M, +S1/S2
Lungs-clear B/L
Abd-soft, NT, ND
Ext-no edema
Musculoskeletal-no cyanosis, clubbing
Skin-warm and dry
Neuro-grossly non-focal
Psych-calm, cooperative
Symptomatic acute on chronic anemia -suspect subacute to chronic blood loss anemia. She is a Mandaeism, refusing blood transfusion. Monitor hemoglobin. No signs of iron deficiency on labs.
Subacute GI blood loss -appreciate GI input. Plan for EGD and colonoscopy tomorrow. Last dose of Eliquis was Wednesday morning. Continue IV Protonix twice daily. Hemoglobin relatively stable, 8.5 today. Will monitor.
Recent pulmonary emboli/DVT -diagnosed May of this year. Eliquis now on hold for GI bleed as above. CT of abdomen pelvis done in May confirmed right-sided pulmonary emboli. Doppler ultrasound in May showed occlusive thrombus in the
left posterior tibial, peroneal, superficial femoral veins and nonocclusive thrombus of the left popliteal vein.
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
Chronic leukopenia -counts are stable. Etiology unclear.
DM2 without hyperglycemia -hemoglobin A1c 7.6%. Glucose 146 this morning. She is on metformin at home. Currently on moderate resistance NovoLog scale.
Hyperlipidemia -on pitavastatin.
Essential hypertension -stable.
Gout -stable.
Fibromyalgia
History of C. difficile colitis -May 2023.
Morbid obesity due to excess calories
Full code
Anticipated Discharge: > 48 hours
Subjective/Interval History
-
Date of Service: July 20, 2023
Patient seen and examined. Currently eating lunch. No complaints.
Objective Data
-
Labs:
Laboratory Results
07/20/23 07/20/23
06:09 09:43
WBC 2.3 L*
Hgb 8.5 L
Hct 24.1 L
Plt Count 250
PT 14.7 H
INR 1.16
Sodium 136
Potassium 5.0
Chloride 109 H
Carbon Dioxide 23
BUN 22 H
Creatinine 1.0
Glucose 146 H
Calcium 9.0
Vital Signs:
Vital Signs
Temp Pulse Resp BP Pulse Ox
98.7 F 72 17 128/61 98
07/20/23 07:55 07/20/23 07:55 07/20/23 07:55 07/20/23 07:55 07/20/23 07:55
Review of Systems
-
History Source: Patient
All other systems: Reviewed and negative
[2023-07-20 13:05] VITALS: BP 156/90; BMI 40.4
[2023-07-20 14:50] VITALS: BP 156/90
[2023-07-20 17:41] LABS: Glucose - Point of Care 125 mg/dl (70-99)
[2023-07-20 21:22] LABS: Glucose - Point of Care 154 mg/dl (70-99)
[2023-07-20] MEDS: MELATONIN 5 MG PO (22:42)
[2023-07-20 23:25] VITALS: BP 144/78
[2023-07-21] MEDS: NSS 1000 IV (04:53)
[2023-07-21] MEDS: TYLENOL 650 MG PO (05:45)
[2023-07-21 06:58] LABS: Glucose - Point of Care 126 mg/dl (70-99)
[2023-07-21 07:10] VITALS: BP 135/69
[2023-07-21] MEDS: NOVOLOG FLEXPEN-MODERATE RESISTANCE SC ×2 (07:30→17:00)
[2023-07-21 08:15] LABS: % Basophils 0.6 % (0-2); % Eosinophils 1.2 % (0-6); % Immature Granulocytes 0.6 % (0-0.5); % Lymphocytes 33.3 % (20.5-51.1); % Monocytes 9.6 % (1.7-9.3); % Neutrophils 54.7 % (42.2-75.2); Absolute Lymphocytes 1.2 10^3/uL (1.2-3.4); Absolute Monocytes 0.3 10^3/uL (0.1-0.6); Absolute Neutrophils 1.9 10^3/uL (1.4-6.5); Hematocrit 23.3 % (37.0-47.0); Hemoglobin 8.1 g/dL (12.0-16.0); Mean Corp Hgb Conc. 34.8 g/dL (33.0-37.0); Mean Corpuscular Volume 106.4 fL (81.0-99.0); Mean Platelet Volume 10.3 fL (7.4-10.4); Nucleated Red Blood Cells % 0.6 %; Platelet Count 225 10^3/uL (130-400); Red Blood Cell Count 2.19 10^6/uL (4.20-5.40); Red Cell Dist. Width 23.9 % (11.5-14.5); White Blood Cell Count 3.5 10^3/uL (4.8-10.8)
--- NOTE | 2023-07-21 08:22 | W.PN.HOSP.TC ---
Addendum entered and electronically signed by Dru Montoya DO 07/21/23 08:36:
Patient obtained path report from the skin biopsy of her right cheek, showing squamous cell carcinoma. Follow-up with dermatology after discharge.
Original Note:
Today's Communication/Plan
-
Monitor hemoglobin
Aquaphor
Prep for colonoscopy tomorrow
Assessment / Plan
Assessment / Plan
Gen-AAOx3, NAD, morbid obesity
HEENT-NC, AT, anicteric, clear oral mm
Neck-supple
CV-reg, no M, +S1/S2
Lungs-clear B/L
Abd-soft, NT, ND
Ext-no edema
Musculoskeletal-no cyanosis, clubbing
Skin-warm and dry, right facial cheek lesion with scab
Neuro-grossly non-focal
Psych-calm, cooperative
Symptomatic acute on chronic anemia -suspect subacute to chronic blood loss anemia. She is a Mor[employer], refusing blood transfusion. Monitor hemoglobin. No signs of iron deficiency on labs. Hemoglobin 8.1 this morning.
Subacute GI blood loss -appreciate GI input. Plan for EGD and colonoscopy tomorrow. Last dose of Eliquis was Wednesday morning. Continue IV Protonix twice daily.
Recent pulmonary emboli/DVT -diagnosed May of this year. Eliquis now on hold for GI bleed as above. CT of abdomen pelvis done in May confirmed right-sided pulmonary emboli. Doppler ultrasound in May showed occlusive thrombus in the
left posterior tibial, peroneal, superficial femoral veins and nonocclusive thrombus of the left popliteal vein.
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
Chronic leukopenia -counts are stable. Etiology unclear.
DM2 without hyperglycemia -hemoglobin A1c 7.6%. Glucose 126 this morning. She is on metformin at home. Currently on moderate resistance NovoLog scale.
Right facial skin cancer -awaiting Mohs procedure at the end of the month. She is requesting Aquaphor twice daily, order placed.
Hyperlipidemia -on pitavastatin.
Essential hypertension -stable.
Gout -stable.
Fibromyalgia
History of C. difficile colitis -May 2023.
Morbid obesity due to excess calories
Full code
Anticipated Discharge: > 48 hours
Subjective/Interval History
-
Date of Service: July 21, 2023
Patient seen and examined. No complaints.
Objective Data
-
Labs:
Laboratory Results
07/21/23
07:37
WBC 3.5 L
Hgb 8.1 L
Hct 23.3 L
Plt Count 225
Vital Signs:
Vital Signs
Temp Pulse Resp BP Pulse Ox
98.4 F 83 18 144/78 98
07/20/23 23:25 07/20/23 23:25 07/20/23 23:25 07/20/23 23:25 07/20/23 23:25
Review of Systems
-
History Source: Patient
All other systems: Reviewed and negative
[2023-07-21] MEDS: FOLVITE 1 MG PO (08:56)
[2023-07-21] MEDS: DELTASONE 10 MG PO (08:56)
[2023-07-21] MEDS: ZYLOPRIM 100 MG PO (08:57)
[2023-07-21] MEDS: TOPROL XL 50 MG PO (08:57)
[2023-07-21] MEDS: IMURAN 50 MG PO ×2 (08:57→19:52)
[2023-07-21] MEDS: LIPITOR 10 MG PO (08:57)
[2023-07-21] MEDS: NORVASC 5 MG PO (08:57)
[2023-07-21] MEDS: NSS (PRESERVATIVE FREE) 10 ML IV ×2 (08:58→19:53)
[2023-07-21] MEDS: PROTONIX IV 40 MG IV ×2 (08:58→19:52)
--- NOTE | 2023-07-21 09:32 | W.PN.GI.CBS2 ---
Today's Communication / Plan
-
EGD and colo 07/21
Assessment / Plan
-
The patient is an 83-year-old female with a past medical history significant for recent DVT/PE on Eliquis (May 2023), diabetes type 2, microscopic polyangiitis and vasculitis on chronic prednisone, gout, osteoporosis, hypertension, hyperlipidemia,
chronic kidney disease, sleep apnea, hx of ROD with evaluation in [address] Edgar, obesity, who presented to the emergency room with complaints of generalized weakness and fatigue. We are being asked to evaluate for GI bleed on Eliquis. She
was advised to go to the emergency room by her wire border assembler due to a drop in hemoglobin and ongoing symptoms suggestive of acute blood loss. Noted with a hemoglobin of 8.3 on admission with brown trace heme positive stool. Recently started on
Eliquis in May for new diagnosis of PE. She is also on chronic prednisone for management of vasculitis. She notes a history of iron deficiency anemia in 2019 requiring iron infusions and follows intermittently with hematology on a yearly
basis. She denies any signs of gross GI bleeding at this time. She is hemodynamically stable.
Problem list:
-Acute macrocytic anemia
-Recent diagnosis of PE on Eliquis May 2023
-History of vasculitis on chronic prednisone
-Elevated ferritin and iron saturation
-COLBY
-History of iron deficiency anemia in 2020 requiring iron transfusion
Other pertinent medical history:
-Gout
-Osteoporosis
-Hyperlipidemia
-Hypertension
-Sleep apnea
-Obesity
Recommendations:
-Etiology of anemia possibly multifactorial with iron studies suggesting anemia of chronic disease versus possible slow GI blood loss (peptic ulcer disease versus AVM versus neoplasm vs other) versus other underlying hematologic disorder versus
other.
-Trend H&H and transfuse for hemoglobin less than 7
-Agree with twice daily PPI
-Hold Eliquis; with brown trace heme positive stool
-Noted input from hematology no bridging for now and original plan was to complete anticoagulation for total of 3 months, completed 2 months
-For endoscopy and colonoscopy tomorrow with bowel prep today. If negative will schedule for capsule endoscopy as outpatient.
-Decision to restart anticoagulation after the procedures will be based upon the findings and also defer final decision to hematology
Subjective
Subjective
Date of Service: July 21, 2023
No active bleeding, hemoglobin low but remains stable, no abdominal pain no nausea vomiting
Objective
Data Reviewed
Laboratory Data:
Laboratory Results
07/21/23 07:37
07/20/23 06:09
Laboratory Results
PT 14.7 Sec (11.4-14.6) H 07/20/23 09:43
INR 1.16 07/20/23 09:43
Phosphorus 3.7 mg/dl (2.5-4.5) 07/20/23 06:09
Magnesium 1.8 mg/dl (1.6-2.3) 07/20/23 06:09
Total Bilirubin 0.8 mg/dl (0.2-1.3) 07/19/23 14:16
AST 33 U/L (14-36) 07/19/23 14:16
ALT 30 U/L (0-35) 07/19/23 14:16
Alkaline Phosphatase 92 U/L (38-126) 07/19/23 14:16
Vital Signs and I&O:
Vital Signs
Temp Pulse Resp BP Pulse Ox
98.1 F 75 20 135/69 100
07/21/23 07:10 07/21/23 07:10 07/21/23 07:10 07/21/23 07:10 07/21/23 07:10
Physical Exam
Physical Exam
Cardiology: Normal Sinus Rhythm
Pulmonary: Clear
GI: Soft, Non Distended, Non Tender and Normal Bowel Sounds
[2023-07-21] MEDS: HYDROPHOR 1 APPLIC TOPICAL ×2 (09:37→19:51)
[2023-07-21 09:38] VITALS: BP 116/72
[2023-07-21 11:55] LABS: Glucose - Point of Care 239 mg/dl (70-99)
[2023-07-21] MEDS: NOVOLOG FLEXPEN-MODERATE RESISTANCE 3 UNITS SC (13:22)
[2023-07-21] MEDS: NULYTELY SOLUTION 4 LITERS PO (15:24)
[2023-07-21 15:36] VITALS: BP 138/76
[2023-07-21 15:49] VITALS: BP 158/70
[2023-07-21 16:49] LABS: Glucose - Point of Care 139 mg/dl (70-99)
--- NOTE | 2023-07-21 17:05 | CM ---
CM following re: d/c planning
Chart reviewed
CM met with the patient at bedside; IA completed
Pt states she resides with her daughter, son-in-law, & two grandkids in a 2SH with 1STE
[employer] patient reports independence at baseline
Pt has no previous SNF hx., has had VN however doesn't recall the agency, ahd has a r/w, spc, & w/c
Pt confirms prescription coverage and rx's are filled at [facility] on [facility]
Pt PCP-Yamila Aquino
No needs are anticipated once stable for d/c
CM will continue to follow patient progress and assist with needs at d/c as indicated
PLAN; d/c home no needs anticipated
[2023-07-21] MEDS: DULCOLAX 20 MG PO (21:18)
[2023-07-21 21:56] LABS: Glucose - Point of Care 125 mg/dl (70-99)
[2023-07-21] MEDS: ZOFRAN 4 MG IV (22:32)
[2023-07-21] MEDS: MELATONIN PO (22:53)
--- NOTE | 2023-07-21 22:53 | PTCARENOTE ---
Pt. supposed to drink 4L of colon prep for scheduled colonoscopy + endoscopy in AM. Pt. tolerated 3/4 of entire container but near the end pt. began having episodes of dry heaving, stomach pain, shaking, and appeared to no longer tolerate bowel
prep. RN reached out to DISCOVERY MANAGER. Orders to encourage pt. to finish prep but if they are unable to continue drinking the medication, then to make note of it (hence this note). Additionally, RN asked for one time order of IV Zofran. Most recent BM
appeared to be watery, not completely clear but overall transparent (very loose, thin feces). Pt. currently resting in bed, feeling much better, call light within reach.
[2023-07-22] VITALS (11 sets, daily range): BP systolic 15–149; BP diastolic 60–78
[2023-07-22 01:51] LABS: Erythropoietin (EPO) 107 mU/mL (4-27)
[2023-07-22 05:49] LABS: Glucose - Point of Care 129 mg/dl (70-99)
[2023-07-22 07:19] LABS: % Basophils 0.8 % (0-2); % Immature Granulocytes 0.3 % (0-0.5); % Lymphocytes 31.5 % (20.5-51.1); % Monocytes 11.2 % (1.7-9.3); % Neutrophils 54.2 % (42.2-75.2); Absolute Eosinophils 0.1 10^3/uL (0-0.7); Absolute Lymphocytes 1.1 10^3/uL (1.2-3.4); Absolute Monocytes 0.4 10^3/uL (0.1-0.6); Absolute Neutrophils 1.9 10^3/uL (1.4-6.5); Hematocrit 22.8 % (37.0-47.0); Mean Corp Hgb Conc. 35.1 g/dL (33.0-37.0); Mean Corpuscular Hgb 37.9 pg (27.0-31.0); Mean Corpuscular Volume 108.1 fL (81.0-99.0); Mean Platelet Volume 10.2 fL (7.4-10.4); Nucleated Red Blood Cells % 0.6 %; Platelet Count 221 10^3/uL (130-400); Red Blood Cell Count 2.11 10^6/uL (4.20-5.40); Red Cell Dist. Width 24.4 % (11.5-14.5); White Blood Cell Count 3.6 10^3/uL (4.8-10.8)
[2023-07-22] MEDS: NOVOLOG FLEXPEN-MODERATE RESISTANCE SC ×2 (08:51→11:03)
[2023-07-22 10:30] LABS: Glucose - Point of Care 109 mg/dl (70-99)
[2023-07-22] MEDS: FOLVITE 1 MG PO (10:54)
[2023-07-22] MEDS: PROTONIX IV 40 MG IV (10:54)
[2023-07-22] MEDS: DELTASONE 10 MG PO (10:55)
[2023-07-22] MEDS: NSS (PRESERVATIVE FREE) 10 ML IV (10:55)
[2023-07-22] MEDS: ZYLOPRIM 100 MG PO (10:55)
[2023-07-22] MEDS: HYDROPHOR 1 APPLIC TOPICAL (10:56)
[2023-07-22] MEDS: LIPITOR 10 MG PO (10:56)
[2023-07-22] MEDS: IMURAN 50 MG PO (10:56)
[2023-07-22] MEDS: TOPROL XL 50 MG PO (11:00)
--- NOTE | 2023-07-22 11:00 | W.PN.HOSP.TC ---
Today's Communication/Plan
-
Resume diet
Discharge
Assessment / Plan
Assessment / Plan
Gen-AAOx3, NAD, morbid obesity
HEENT-NC, AT, anicteric, clear oral mm
Neck-supple
CV-reg, no M, +S1/S2
Lungs-clear B/L
Abd-soft, NT, ND
Ext-no edema
Musculoskeletal-no cyanosis, clubbing
Skin-warm and dry, right facial cheek lesion with scab
Neuro-grossly non-focal
Psych-calm, cooperative
Symptomatic acute on chronic anemia -suspect subacute to chronic blood loss anemia. She is a Mormonism, refusing blood transfusion. Monitor hemoglobin. No signs of iron deficiency on labs. Hemoglobin 8.0 this morning, stable.
Subacute GI blood loss -appreciate GI input. EGD completed, showing normal esophagus, small hiatal hernia, normal duodenum. Colonoscopy completed, showing diffuse diverticulosis, polyps throughout colon, internal hemorrhoids. Multiple
polypectomies performed. GI recommends repeat colonoscopy in 1 year, outpatient capsule endoscopy.
Recent pulmonary emboli/DVT -diagnosed May of this year. Eliquis now on hold for GI bleed as above. CT of abdomen pelvis done in May confirmed right-sided pulmonary emboli. Doppler ultrasound in May showed occlusive thrombus in the
left posterior tibial, peroneal, superficial femoral veins and nonocclusive thrombus of the left popliteal vein.
GI recommends resuming Eliquis in 3 days. Discussed with patient.
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
Chronic leukopenia -counts are stable. Etiology unclear.
DM2 without hyperglycemia -hemoglobin A1c 7.6%. Glucose 129 this morning. She is on metformin at home. Currently on moderate resistance NovoLog scale.
Right facial skin cancer -awaiting Mohs procedure at the end of the month. She is requesting Aquaphor twice daily, order placed.
Hyperlipidemia -on pitavastatin.
Essential hypertension -stable.
Gout -stable.
Fibromyalgia
History of C. difficile colitis -May 2023.
Morbid obesity due to excess calories
Full code
Dispo -medically stable for discharge home today. Discussed with GI. Outpatient follow-up.
35 minutes spent in discharge process.
Anticipated Discharge: Today
Subjective/Interval History
-
Date of Service: July 22, 2023
Patient seen and examined. No complaints.
Objective Data
-
Labs:
Laboratory Results
07/22/23
06:46
WBC 3.6 L
Hgb 8.0 L
Hct 22.8 L
Plt Count 221
Vital Signs:
Vital Signs
Temp Pulse Resp BP Pulse Ox
98.1 F 77 15 113/63 100
07/22/23 10:05 07/22/23 10:32 07/22/23 10:32 07/22/23 10:32 07/22/23 07:00
I&O
07/21/23 07/22/23 07/23/23
06:59 06:59 06:59
Intake Total 1800 / 1800
Balance 1800 / 1800
Review of Systems
-
History Source: Patient
All other systems: Reviewed and negative
[2023-07-22] MEDS: NORVASC 5 MG PO (11:01)
--- NOTE | 2023-07-22 11:07 | W.DS.TRANS ---
DC Summary - Optometrist
-
Discharge Instructions:
Discharge Diagnosis/Procedures Symptomatic anemia, GI bleed
Diet Diabetic, Carb Controlled
Activity As tolerated
Driving Restrictions As prior to admission
Blood Work CBC in 1 week with your primary care doctor
Instructions:
Stand-Alone Forms:
Changes to Home Medications: No
Discharge Medications:
DC Medications w/original date entered in [employer]
allopurinol 100 mg tablet 100 mg PO DAILY Gout 12/29/19
melatonin 5 mg tablet 5 mg PO HS Sleep 12/29/19
metoprolol succinate 50 mg tablet,extended release 24 hr 50 mg PO DAILY Blood pressure 12/29/19
amlodipine 5 mg tablet 5 mg PO DAILY Blood Pressure 05/18/23
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
cholecalciferol (vitamin D3) 25 mcg (1,000 unit) tablet 25 mcg PO DAILY Supplement 05/18/23
famotidine 20 mg tablet 20 mg PO BID Gastrointestinal Issue 05/18/23
metformin 500 mg tablet 500 mg PO BID Diabetes 05/18/23
pitavastatin calcium 2 mg tablet (Livalo) 2 mg PO DAILY High Cholesterol 05/18/23
prednisone 5 mg tablet 10 mg PO DAILY Autoimmune Disorder 07/19/23
folic acid 1 mg tablet 1 mg PO DAILY #30 tabs 07/22/23
Home Medication Changes
Pending Results: No
[2023-07-22 11:58] LABS: Glucose - Point of Care 121 mg/dl (70-99)
== END 2023-07-22 16:42 | disposition home or self-care (01) | DRG 378 ==
LOC: 4 EAST ACU 21:14
PROVIDERS: Emergency Medicine; Nurse Practitioner Family; ADMITTING PHYSICIAN Internal Medicine; ATTENDING PHYSICIAN Hospitalist; CONSULT PHYSICIAN Internal Medicine Gastroenterology; EMERGENCY PHYSICIAN Emergency Medicine; FAMILY PHYSICIAN Internal Medicine; OTHER PHYSICIAN Internal Medicine Hematology & Oncology
PROC: 0DBL8ZZ Excision of Transverse Colon, Via Natural or Artificial Opening Endoscopic (ICD-10-PCS; 2023-07-22)
PROC: 0DBH8ZZ Excision of Cecum, Via Natural or Artificial Opening Endoscopic (ICD-10-PCS; 2023-07-22)
PROC: 0W3P8ZZ Control Bleeding in Gastrointestinal Tract, Via Natural or Artificial Opening Endoscopic (ICD-10-PCS; 2023-07-22)
PROC: 0DBK8ZZ Excision of Ascending Colon, Via Natural or Artificial Opening Endoscopic (ICD-10-PCS; 2023-07-22)
PROC: 0DJ08ZZ Inspection of Upper Intestinal Tract, Via Natural or Artificial Opening Endoscopic (ICD-10-PCS; 2023-07-22)
DX: K57.31 Diverticulosis of large intestine without perforation or abscess with bleeding (principal); D62 Acute posthemorrhagic anemia; D84.821 Immunodeficiency due to drugs; M31.7 Microscopic polyangiitis; Z68.41 Body mass index [BMI] 40.0-44.9, adult; N17.9 Acute kidney failure, unspecified; D68.32 Hemorrhagic disorder due to extrinsic circulating anticoagulants; D53.9 Nutritional anemia, unspecified; E78.00 Pure hypercholesterolemia, unspecified; N18.30 Chronic kidney disease, stage 3 unspecified; I12.9 Hypertensive chronic kidney disease with stage 1 through stage 4 chronic kidney disease, or unspecified chronic kidney disease; R09.02 Hypoxemia; M81.0 Age-related osteoporosis without current pathological fracture; M10.9 Gout, unspecified; I77.82 Antineutrophilic cytoplasmic antibody [ANCA] vasculitis; M79.7 Fibromyalgia; C44.92 Squamous cell carcinoma of skin, unspecified; E11.22 Type 2 diabetes mellitus with diabetic chronic kidney disease; E11.649 Type 2 diabetes mellitus with hypoglycemia without coma; L71.9 Rosacea, unspecified; G47.33 Obstructive sleep apnea (adult) (pediatric); J30.1 Allergic rhinitis due to pollen; L57.0 Actinic keratosis; K21.9 Gastro-esophageal reflux disease without esophagitis; K44.9 Diaphragmatic hernia without obstruction or gangrene; D12.0 Benign neoplasm of cecum; D12.2 Benign neoplasm of ascending colon; D12.3 Benign neoplasm of transverse colon; K64.8 Other hemorrhoids; E66.01 Morbid (severe) obesity due to excess calories; Z96.651 Presence of right artificial knee joint; Z90.710 Acquired absence of both cervix and uterus; Z79.84 Long term (current) use of oral hypoglycemic drugs; Z86.718 Personal history of other venous thrombosis and embolism; Z86.711 Personal history of pulmonary embolism; Z79.01 Long term (current) use of anticoagulants; Z88.6 Allergy status to analgesic agent; Z88.1 Allergy status to other antibiotic agents; Z88.8 Allergy status to other drugs, medicaments and biological substances; Z91.018 Allergy to other foods; Z79.52 Long term (current) use of systemic steroids
CPT/HCPCS: 88305; 36415; 71046; 80048; 80053; 82607; 82668; 82728; 82746; 82962; 83010; 83036; 83540; 83550; 83615; 83735; 83880; 84100; 84443; 84484; 84550; 85014; 85018; 85025; 85027; 85045; 85610; 86850; 86880; 86900; 86901; 93005; 96361; 96374; 99285; J7500

== ENCOUNTER → 2023-07-28 15:08 | Outpatient (REF) | payer MEDICARE, OTHER, SELFPAY ==
[2023-07-28 16:04] LABS: % Eosinophils 0.5 % (0-6); % Lymphocytes 11.4 % (20.5-51.1); % Monocytes 8.8 % (1.7-9.3); % Neutrophils 77.3 % (42.2-75.2); Absolute Lymphocytes 0.4 10^3/uL (1.2-3.4); Absolute Monocytes 0.3 10^3/uL (0.1-0.6); Hematocrit 23.8 % (37.0-47.0); Hemoglobin 8.3 g/dL (12.0-16.0); Mean Corp Hgb Conc. 34.9 g/dL (33.0-37.0); Mean Corpuscular Hgb 38.1 pg (27.0-31.0); Mean Corpuscular Volume 109.2 fL (81.0-99.0); Mean Platelet Volume 10.8 fL (7.4-10.4); Nucleated Red Blood Cells % 1.3 %; Platelet Count 212 10^3/uL (130-400); Red Blood Cell Count 2.18 10^6/uL (4.20-5.40); Red Cell Dist. Width 24.1 % (11.5-14.5); White Blood Cell Count 3.9 10^3/uL (4.8-10.8)
== END ==
LOC: REG 15:08
PROVIDERS: ATTENDING PHYSICIAN Nurse Practitioner Family
DX: D50.8 Other iron deficiency anemias (principal); D50.0 Iron deficiency anemia secondary to blood loss (chronic)
CPT/HCPCS: 36415; 85025

== ENCOUNTER 2023-08-10 11:44 | Day surgery (SDC) | payer MEDICARE, OTHER, SELFPAY ==
[2023-08-10] VITALS (14 sets, daily range): BP systolic 104–155; BP diastolic 53–75; BMI 38.4
[2023-08-10 12:00] LABS: Glucose - Point of Care 121 mg/dl (70-99)
--- NOTE | 2023-08-10 13:20 | W.SUR.PREOP ---
Pre-Operative Surgical Note
-
I have examined this patient prior to the performance of the scheduled procedure.
The patient's condition is unchanged from the time of the current History and
Physical and the patient is able to undergo the scheduled procedure.
[2023-08-10 15:42] LABS: Glucose - Point of Care 145 mg/dl (70-99)
--- NOTE | 2023-08-10 16:11 | W.IMMPOSTOP ---
Surgical Immed Post Op Note
-
Primary Surgeon: KATERINA Stephen MD
Assisting Surgeon:
Pre-op Diagnosis: Mohs defect right face
Post-op Diagnosis: Same
Procedure Performed: Adjacent tissue transfer right face, 8 x 8 cm
Anesthesia Type: General via LMA
Specimen / Cultures: None
Estimated Blood Loss: 10 cc
Complications: None
Operative Findings: As expected
--- NOTE | 2023-08-10 16:13 | OR.RPT ---
Operative Report
Operative Report
Surgeon: KATERINA Stephen MD
Preoperative diagnosis: Mohs defect of right face after resection of squamous cell carcinoma
Postoperative diagnosis: Same
Procedure:
1. Adjacent tissue transfer, right face/cheek, 8 x 8 cm
2.Wound bed preparation right face 3 x 3.5 cm
Complications: None
Drains: [place]
EBL: 10 cc
Anesthesia: General via LMA
Indication for procedure: Patient is a 83-year-old female who presented to my office yesterday following Mohs procedure for squamous cell carcinoma of the right cheek. Negative margins were obtained by the consumer insights specialist, but the patient no longer
tolerated further procedural care under local anesthesia. As such she was referred to my office for consideration of reconstruction of the Mohs defect under general anesthesia. She had previously undergone lab work and recent EKG during inpatient
admission for DVT. She completed anticoagulation therapy as directed and is no longer symptomatic. She is diabetic and anemic at baseline. We discussed her options at length including local flap closure as well as skin grafts. Plan was made for
the local flap closure using a cervicofacial flap and the scar burden was described to her. Photographs were shown accordingly. Risks of the procedure were increased due to her immunosuppression and this was discussed. Risks include bleeding,
infection, scar, flap loss and need for repeat procedure. Damage to nerves and central fascial structures also possible however unlikely. She understood these risk desired to proceed
Procedure in detail: Patient was evaluated in the preoperative area and the surgical site was confirmed to be the right face. All questions were answered and consents were confirmed. Patient was taken back to the operating room and placed supine
on the table. Anesthesia was induced and an LMA was placed. The defect was measured to be approximately 3 x 3.5 cm. Relative skin laxity for primary closure was assessed and determined placed too much tension on the right nasolabial fold and lip
structures. As such a plan was made for right cervicofacial flap with excision of the inferior dogear. The patient was prepped with Betadine solution and a timeout for patient safety was performed confirming that preoperative antibiotics had been
administered and bilateral SCDs were in place. Local anesthesia was was obtained with a dilute mixture 1% lidocaine with epinephrine and normal saline. The proposed markings were incised with a 15 blade and dissection continued about the SMAS
using Bovie electrocautery. The flap was elevated protecting the subdermal plexus and additional incisional length was only used as needed to allow for tension-free closure and rotation into the defect. Prior to inset of the flap, wound bed prep
of the prior defect was performed by excising the wound bed edges with a 15 blade and removing any nonviable or devitalized tissues as well as fibrinous buildup. Inferior dogear was excised and this was brought into the nasolabial/marionette lines.
The flap was inset with a series of 5-0 Vicryl sutures. A Z-plasty was performed below the right ear. Superficial sutures consisted of a running 5-0 nylon. A [place] drain was left under the flap to drain in the retroauricular space. Topical
TXA was applied to the wound bed to prevent bleeding and hematoma. At the conclusion of the case she had a well vascularized flap and successful reconstruction of the defect of the right face. She tolerated procedure well was performed out
complication. All counts were correct at the case. She was extubated taken the PACU further care.
--- NOTE | 2023-08-10 18:21 | PTCARENOTE ---
Pt arrived to [facility] from PACU s/p MOHS reconstruction R cheek. 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 HOB 30 degrees. Pt states no pain at this time. Pt oriented to call de paz and room, bed
locked and in lowest position, call de paz within reach.
[2023-08-10] MEDS: PEPCID 20 MG PO (19:45)
[2023-08-10] MEDS: GLUCOPHAGE 500 MG PO (19:45)
[2023-08-10 19:50] LABS: Glucose - Point of Care 207 mg/dl (70-99)
[2023-08-10] MEDS: TYLENOL 1000 MG PO (22:11)
[2023-08-10] MEDS: MELATONIN 5 MG PO (22:52)
--- NOTE | 2023-08-11 03:33 | DOWNTIME ---
There was a [employer] Client Early Childhood Education Coordinator Downtime on 08/11/2023 from 0100 to 08/11/2023 at 0322. Downtime documentation of patient's care, including medication administrations, has been reconciled in the electronic record per guidelines. Refer to the
patient's paper chart under the miscellaneous tab to see printed paper medication records and downtime forms.
[2023-08-11 03:50] VITALS: BP 134/65
[2023-08-11] MEDS: TYLENOL 1000 MG PO ×2 (04:21→10:14)
[2023-08-11 07:46] VITALS: BP 149/76
[2023-08-11] MEDS: FOLVITE 1 MG PO (08:20)
[2023-08-11] MEDS: NORVASC 5 MG PO (08:20)
[2023-08-11] MEDS: DELTASONE 10 MG PO (08:20)
[2023-08-11] MEDS: GLUCOPHAGE 500 MG PO (08:20)
[2023-08-11] MEDS: IMURAN 50 MG PO (08:20)
[2023-08-11] MEDS: VITAMIN B-12 50 MCG PO (08:21)
[2023-08-11] MEDS: TOPROL XL 50 MG PO (08:21)
[2023-08-11] MEDS: PEPCID 20 MG PO (08:21)
[2023-08-11] MEDS: ZYLOPRIM 100 MG PO (08:22)
[2023-08-11] MEDS: VITAMIN D3 (cholecalciferol) 25 MCG PO (08:22)
--- NOTE | 2023-08-11 10:12 | W.PN.PLAS ---
Today's Communication
-
Gladys removed
Follow up on Wednesday in office for suture removal
Progress Note
Subjective Data
Pain well controlled
Denies SOB
Subjective: Tolerating Regular Diet and Ambulatory
Objective Data
Vital Signs
Temp Pulse Resp BP Pulse Ox
99.4 F 81 19 149/76 94
08/11/23 07:46 08/11/23 08:20 08/11/23 07:46 08/11/23 08:20 08/11/23 07:46
Intake and Output
08/10/23 08/11/23 08/12/23
06:59 06:59 06:59
Intake Total 710 / 710
Output Total 900 / 900
Balance -190 / -190
Intake:
Oral fluids 460 / 460
IV fluids (Total) 250 / 250
Normosol 250 / 250
IV piggybacks 0 / 0
Output:
Urine, Voided 900 / 900
Other:
How many times incontinent 2
SMALL amount urine
PEx:
NAD
No increased WOB
Sutures in place over right facial flap
No undrained collections
Gladys in place
well perfused appearing
Review of Systems
Review of Systems: Satisfactory Appetite
Assessment / Plan
S/p right facial Mohs defect reconstruction
Home today
Pain well controlled on tylenol
--- NOTE | 2023-08-11 10:14 | W.DCSUMMARY ---
Discharge Summary
Discharge Data
Date of Admission: 08/10/23
Date of Discharge: 08/11/23
-
Pending Results: No
Hospital Course
s/p right facial Mohs recon. Admitted for post surgical recovery and observation for flap monitoring
Pain well controlled
tolerating regular diet
Flap well perfused with routine healing
Discharge Plan
-
Patient Disposition: Home (Routine Discharge)
Discharge Diagnosis/Procedures: s/p right facial mohs defect reconstruction
Diet: Diabetic, Carb Controlled
Activity: No strenuous activity
Additional Activity: HOB elevated at night for 72 hours
Driving Restrictions: Not until seen by your Dr
Bathing Restrictions: OK to Shower
Wound Care: Apply bacitracin to wound daily, soap and water daily. okay to cover as needed
Referrals:
UNKNOWN - PT NOT,INTERVIEWE [Family Provider] -
Prescriptions:
New
acetaminophen [Tylenol Extra Strength] 500 mg Tablet
1,000 mg PO Q6H 7 Days Qty: 56 0RF
Continued
metoprolol succinate 50 MG tablet extended release 24 hr
50 mg PO DAILY
allopurinol 100 MG tablet
100 mg PO DAILY
melatonin 5 MG tablet
5 mg PO HS
metformin 500 mg Tablet
500 mg PO BID
azathioprine 50 mg Tablet
50 mg PO BID
amlodipine 5 mg Tablet
5 mg PO DAILY
famotidine 20 mg Tablet
20 mg PO BID
cholecalciferol (vitamin D3) 25 mcg (1,000 unit) Tablet
25 mcg PO DAILY
pitavastatin calcium [Livalo] 2 mg Tablet
2 mg PO DAILY
prednisone 5 mg Tablet
10 mg PO DAILY
folic acid 1 mg Tablet
1 mg PO DAILY Qty: 30 0RF
Vitamin B-12 50 mcg Lozenge
50 mcg PO DAILY
Discharge Orders:
Discharge Patient (As Directed); Ordered 08/11/23
Ordered By: Nnamdi Stephen
Discharge Date and Time
Print Language: IRAQI
--- NOTE | 2023-08-11 10:39 | CM ---
Initial assessment completed with patient who lives with her daughter, son-in-law and their children in a 2 story home with basement , 1 step to enter, B/B on and 1/2 bath on . 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 DME in home is rollator,
RW, wheelchair and SPC, no in-home services. No psychiatric hospitalizations. Pharmacy is [facility], in [place]. PCP is Dr. Yamila Aquino. Anticipate no needs at discharge. Patient in agreement.
--- NOTE | 2023-08-11 10:45 | CM ---
Patient has been medically cleared for discharge to home with no additional skilled services. Patient has arranged for transport home.
[2023-08-11 11:14] VITALS: BP 150/73
== END 2023-08-11 13:20 | disposition home or self-care (01) ==
LOC: SDS 11:44
PROVIDERS: ATTENDING PHYSICIAN Surgery Plastic and Reconstructive Surgery
DX: C44.329 Squamous cell carcinoma of skin of other parts of face (principal)
CPT/HCPCS: 14301; 14302; 82962; G0378; J7500

== ENCOUNTER → 2023-08-16 10:16 | Outpatient (REF) | payer MEDICARE, OTHER, SELFPAY ==
[2023-08-16 11:13] LABS: % Basophils 1.2 % (0-2); % Eosinophils 3.5 % (0-6); % Immature Granulocytes 0.9 % (0-0.5); % Lymphocytes 21.2 % (20.5-51.1); % Monocytes 9.6 % (1.7-9.3); % Neutrophils 63.6 % (42.2-75.2); Absolute Basophils 0.1 10^3/uL (0-0.2); Absolute Eosinophils 0.2 10^3/uL (0-0.7); Absolute Lymphocytes 0.9 10^3/uL (1.2-3.4); Absolute Monocytes 0.4 10^3/uL (0.1-0.6); Absolute Neutrophils 2.7 10^3/uL (1.4-6.5); Hematocrit 28.4 % (37.0-47.0); Hemoglobin 9.3 g/dL (12.0-16.0); Mean Corp Hgb Conc. 32.7 g/dL (33.0-37.0); Mean Corpuscular Hgb 40.1 pg (27.0-31.0); Mean Corpuscular Volume 122.4 fL (81.0-99.0); Mean Platelet Volume 10.8 fL (7.4-10.4); Nucleated Red Blood Cells % 1.2 %; Platelet Count 200 10^3/uL (130-400); Red Blood Cell Count 2.32 10^6/uL (4.20-5.40); Red Cell Dist. Width 21.2 % (11.5-14.5); Reticulocyte Count 5.4 % (0.4-2.8); White Blood Cell Count 4.3 10^3/uL (4.8-10.8)
[2023-08-16 11:31] LABS: Iron 153 ug/dl (37-170)
[2023-08-16 11:33] LABS: D-Dimer 3.08 ug/mlFEU (0.00-0.50)
[2023-08-16 11:40] LABS: Percent Saturation 64 % (20-50); Total Iron Binding Capacity 238 ug/dl (265-497)
[2023-08-16 12:05] LABS: Erythrocyte Sed Rate 32 mm/hour (0-20)
[2023-08-18 01:34] LABS: Beta-2-Glycoprotein I Ab. IgG <10 SGU (<=20); Beta-2-Glycoprotein I Ab. IgM <10 SMU (<=20)
[2023-08-18 07:57] LABS: Cardiolipin IgA Antibody <10 APL (<=11); Cardiolipin IgM Antibody <10 MPL (<=12); Cardiolipin Igg Antibody <10 GPL (<=14)
[2023-08-18 14:42] LABS: Anti-Xa Qualitative Interp Not Performed (Not Present); Anticoagulant Med Neutralizati Not Performed (Not Performed); Hexagonal Phospholipid Confirm Not Performed s (<=7.9); Neutralized PTT-LA Ratio Not Performed (<=1.20); Neutralized dRVTT Screen Ratio Not Performed (<=1.20); PTT-LA Ratio 0.71 (<=1.20); Prothrombin Time 12.3 s (12.0-15.5); Thrombin Time Not Performed s (<=19.5); dRVTT 1.1 Mix Ratio Not Performed (<=1.20); dRVTT Confirmation Ratio Not Performed (<=1.20); dRVTT Screen Ratio 0.79 (<=1.20)
== END ==
LOC: REG 10:16
PROVIDERS: ATTENDING PHYSICIAN Internal Medicine Hematology & Oncology; FAMILY PHYSICIAN Nurse Practitioner Family
DX: D63.1 Anemia in chronic kidney disease (principal); D50.0 Iron deficiency anemia secondary to blood loss (chronic); D72.829 Elevated white blood cell count, unspecified; R71.8 Other abnormality of red blood cells; D64.9 Anemia, unspecified; D62 Acute posthemorrhagic anemia
CPT/HCPCS: 36415; 82728; 83540; 83550; 85025; 85045; 85379; 85610; 85613; 85652; 85730; 86146; 86147

== ENCOUNTER → 2023-08-19 14:56 | Outpatient (REF) | payer MEDICARE, OTHER, SELFPAY | LOC: HWRAD 14:56 | PROVIDERS: ATTENDING PHYSICIAN Internal Medicine Hematology & Oncology; FAMILY PHYSICIAN Internal Medicine; REFERRING PHYSICIAN Internal Medicine Rheumatology | DX: I26.99 Other pulmonary embolism without acute cor pulmonale (principal) | CPT/HCPCS: 71275; Q9967 ==

== ENCOUNTER → 2023-08-23 10:23 | Outpatient (REF) | payer MEDICARE, OTHER, SELFPAY ==
[2023-08-23 10:52] LABS: % Basophils 1.4 % (0-2); % Eosinophils 3.2 % (0-6); % Immature Granulocytes 0.4 % (0-0.5); % Lymphocytes 28.4 % (20.5-51.1); % Monocytes 8.5 % (1.7-9.3); % Neutrophils 58.1 % (42.2-75.2); Absolute Basophils 0.1 10^3/uL (0-0.2); Absolute Eosinophils 0.2 10^3/uL (0-0.7); Absolute Lymphocytes 1.4 10^3/uL (1.2-3.4); Absolute Monocytes 0.4 10^3/uL (0.1-0.6); Absolute Neutrophils 2.9 10^3/uL (1.4-6.5); Hematocrit 28.8 % (37.0-47.0); Hemoglobin 9.7 g/dL (12.0-16.0); Mean Corp Hgb Conc. 33.7 g/dL (33.0-37.0); Mean Corpuscular Hgb 41.6 pg (27.0-31.0); Mean Corpuscular Volume 123.6 fL (81.0-99.0); Mean Platelet Volume 10.3 fL (7.4-10.4); Nucleated Red Blood Cells % 1.2 %; Platelet Count 179 10^3/uL (130-400); Red Blood Cell Count 2.33 10^6/uL (4.20-5.40); Red Cell Dist. Width 19.2 % (11.5-14.5); White Blood Cell Count 4.9 10^3/uL (4.8-10.8)
[2023-08-23 11:15] LABS: Iron 197 ug/dl (37-170)
[2023-08-23 11:23] LABS: Percent Saturation 94 % (20-50); Total Iron Binding Capacity 208 ug/dl (265-497)
== END ==
LOC: REG 10:23
PROVIDERS: ATTENDING PHYSICIAN Internal Medicine Hematology & Oncology; FAMILY PHYSICIAN Internal Medicine
DX: D63.1 Anemia in chronic kidney disease (principal); D50.0 Iron deficiency anemia secondary to blood loss (chronic); D72.829 Elevated white blood cell count, unspecified; R71.8 Other abnormality of red blood cells; D64.9 Anemia, unspecified; I26.99 Other pulmonary embolism without acute cor pulmonale
CPT/HCPCS: 36415; 82728; 83540; 83550; 85025

== ENCOUNTER → 2023-08-30 10:36 | Outpatient (REF) | payer MEDICARE, OTHER, SELFPAY ==
[2023-08-30 11:37] LABS: % Eosinophils 5.6 % (0-6); % Immature Granulocytes 0.6 % (0-0.5); % Lymphocytes 16.9 % (20.5-51.1); % Monocytes 7.2 % (1.7-9.3); % Neutrophils 68.7 % (42.2-75.2); Absolute Basophils 0.1 10^3/uL (0-0.2); Absolute Eosinophils 0.3 10^3/uL (0-0.7); Absolute Lymphocytes 0.9 10^3/uL (1.2-3.4); Absolute Monocytes 0.4 10^3/uL (0.1-0.6); Absolute Neutrophils 3.5 10^3/uL (1.4-6.5); Hematocrit 26.6 % (37.0-47.0); Mean Corp Hgb Conc. 33.8 g/dL (33.0-37.0); Mean Corpuscular Hgb 41.7 pg (27.0-31.0); Mean Corpuscular Volume 123.1 fL (81.0-99.0); Mean Platelet Volume 10.5 fL (7.4-10.4); Nucleated Red Blood Cells % 1.2 %; Platelet Count 114 10^3/uL (130-400); Red Blood Cell Count 2.16 10^6/uL (4.20-5.40); White Blood Cell Count 5.2 10^3/uL (4.8-10.8)
[2023-08-30 12:14] LABS: Iron 179 ug/dl (37-170)
[2023-08-30 12:22] LABS: Percent Saturation 71 % (20-50); Total Iron Binding Capacity 252 ug/dl (265-497)
== END ==
LOC: REG 10:36
PROVIDERS: ATTENDING PHYSICIAN Internal Medicine Hematology & Oncology; FAMILY PHYSICIAN Internal Medicine
DX: D63.1 Anemia in chronic kidney disease (principal); D50.0 Iron deficiency anemia secondary to blood loss (chronic); D72.829 Elevated white blood cell count, unspecified; R71.8 Other abnormality of red blood cells; D64.9 Anemia, unspecified; I26.99 Other pulmonary embolism without acute cor pulmonale
CPT/HCPCS: 36415; 82728; 83540; 83550; 85025

== ENCOUNTER → 2023-09-06 10:09 | Outpatient (REF) | payer MEDICARE, OTHER, SELFPAY ==
[2023-09-06 11:53] LABS: % Basophils 0.9 % (0-2); % Eosinophils 7.1 % (0-6); % Immature Granulocytes 0.2 % (0-0.5); % Lymphocytes 19.5 % (20.5-51.1); % Monocytes 7.6 % (1.7-9.3); % Neutrophils 64.7 % (42.2-75.2); Absolute Eosinophils 0.3 10^3/uL (0-0.7); Absolute Lymphocytes 0.9 10^3/uL (1.2-3.4); Absolute Monocytes 0.4 10^3/uL (0.1-0.6); Hematocrit 25.4 % (37.0-47.0); Hemoglobin 8.4 g/dL (12.0-16.0); Mean Corp Hgb Conc. 33.1 g/dL (33.0-37.0); Mean Corpuscular Hgb 41.6 pg (27.0-31.0); Mean Corpuscular Volume 125.7 fL (81.0-99.0); Nucleated Red Blood Cells % 0.6 %; Red Blood Cell Count 2.02 10^6/uL (4.20-5.40); Red Cell Dist. Width 17.8 % (11.5-14.5); White Blood Cell Count 4.6 10^3/uL (4.8-10.8)
[2023-09-06 12:51] LABS: Mean Platelet Volume 11.4 fL (7.4-10.4); Platelet Count 97 10^3/uL (130-400)
[2023-09-06 14:21] LABS: Iron 157 ug/dl (37-170)
[2023-09-06 14:31] LABS: Percent Saturation 61 % (20-50); Total Iron Binding Capacity 256 ug/dl (265-497)
== END ==
LOC: REG 10:09
PROVIDERS: ATTENDING PHYSICIAN Internal Medicine Hematology & Oncology; FAMILY PHYSICIAN Internal Medicine
DX: D63.1 Anemia in chronic kidney disease (principal); D50.0 Iron deficiency anemia secondary to blood loss (chronic); D72.829 Elevated white blood cell count, unspecified; R71.8 Other abnormality of red blood cells; D64.9 Anemia, unspecified; I26.99 Other pulmonary embolism without acute cor pulmonale
CPT/HCPCS: 36415; 82728; 83540; 83550; 85025

== ENCOUNTER → 2023-09-14 15:03 | Outpatient (REF) | payer MEDICARE, OTHER, SELFPAY ==
[2023-09-14 16:14] LABS: % Basophils 0.3 % (0-2); % Eosinophils 0.6 % (0-6); % Immature Granulocytes 0.6 % (0-0.5); % Lymphocytes 11.7 % (20.5-51.1); % Monocytes 11.4 % (1.7-9.3); % Neutrophils 75.4 % (42.2-75.2); Absolute Lymphocytes 0.4 10^3/uL (1.2-3.4); Absolute Monocytes 0.4 10^3/uL (0.1-0.6); Absolute Neutrophils 2.4 10^3/uL (1.4-6.5); Hematocrit 25.3 % (37.0-47.0); Hemoglobin 8.8 g/dL (12.0-16.0); Mean Corp Hgb Conc. 34.8 g/dL (33.0-37.0); Mean Corpuscular Hgb 42.3 pg (27.0-31.0); Mean Corpuscular Volume 121.6 fL (81.0-99.0); Mean Platelet Volume 11.8 fL (7.4-10.4); Nucleated Red Blood Cells % 1.6 %; Platelet Count 114 10^3/uL (130-400); Red Blood Cell Count 2.08 10^6/uL (4.20-5.40); Red Cell Dist. Width 18.4 % (11.5-14.5); White Blood Cell Count 3.2 10^3/uL (4.8-10.8)
[2023-09-14 16:15] LABS: Urine Albumin Negative (Neg - Trace); Urine Bilirubin Negative (Negative); Urine Character Clear (Clear); Urine Color Yellow; Urine Glucose Negative (Negative); Urine Ketone Negative (Negative); Urine Leukocyte 1+ (Negative); Urine Nitrite Negative (Negative); Urine Occult Blood 1+ (Negative); Urine Specific Gravity 1.015 (<1.030); Urine Urobilinogen Negative (Neg - 1+)
[2023-09-14 16:32] LABS: Erythrocyte Sed Rate 69 mm/hour (0-20)
[2023-09-14 16:36] LABS: Protein/creatinine Ratio 0.2; Urine Protein 12 mg/dl
[2023-09-14 16:43] LABS: Urine Urothelial Cell 0-2 /LPF (FEW)
[2023-09-14 16:44] LABS: Urine Bacteria Few (Negative)
[2023-09-14 16:45] LABS: ALT (SGPT) 47 U/L (0-35); AST (SGOT) 57 U/L (14-36); Albumin 3.7 g/dl (3.5-5.0); Alkaline Phosphatase 139 U/L (38-126); Blood Urea Nitrogen 23 mg/dl (7-17); Calcium 9.7 mg/dl (8.4-10.2); Carbon Dioxide 19 mmol/L (22-30); Chloride 108 mmol/L (98-107); Glucose 147 mg/dl (70-99); Iron 521 ug/dl (37-170); Potassium 4.1 mmol/L (3.5-5.1); Sodium 134 mmol/L (135-145); Total Bilirubin 0.7 mg/dl (0.2-1.3); Total Protein 5.9 g/dl (6.3-8.2)
[2023-09-14 16:54] LABS: Percent Saturation 201 % (20-50); Total Iron Binding Capacity 259 ug/dl (265-497)
[2023-09-16 00:34] LABS: Complement C3 170 mg/dl (88-165)
[2023-09-17 11:47] LABS: Myeloperoxidase Antibody 53 AU/mL (0-19)
== END ==
LOC: REG 15:03
PROVIDERS: ATTENDING PHYSICIAN Internal Medicine Hematology & Oncology; FAMILY PHYSICIAN Internal Medicine; REFERRING PHYSICIAN Internal Medicine Rheumatology
DX: L92.9 Granulomatous disorder of the skin and subcutaneous tissue, unspecified (principal); M1A.9XX0 Chronic gout, unspecified, without tophus (tophi); M31.7 Microscopic polyangiitis; M47.816 Spondylosis without myelopathy or radiculopathy, lumbar region; M79.7 Fibromyalgia; M81.0 Age-related osteoporosis without current pathological fracture; R20.0 Anesthesia of skin; D63.1 Anemia in chronic kidney disease; D50.0 Iron deficiency anemia secondary to blood loss (chronic); D72.829 Elevated white blood cell count, unspecified; R71.8 Other abnormality of red blood cells; D64.9 Anemia, unspecified; I26.99 Other pulmonary embolism without acute cor pulmonale
CPT/HCPCS: 36415; 80053; 81003; 81015; 82570; 82728; 83516; 83540; 83550; 84156; 85025; 85652; 86140; 86160

== ENCOUNTER → 2023-09-20 13:56 | Outpatient (REF) | payer MEDICARE, OTHER, SELFPAY ==
[2023-09-20 13:57] LABS: Hematocrit 28.9 % (37.0-47.0); Hemoglobin 10.1 g/dL (12.0-16.0); Mean Corp Hgb Conc. 34.9 g/dL (33.0-37.0); Mean Corpuscular Hgb 42.1 pg (27.0-31.0); Mean Corpuscular Volume 120.4 fL (81.0-99.0); Mean Platelet Volume 10.6 fL (7.4-10.4); Platelet Count 230 10^3/uL (130-400); Red Cell Dist. Width 17.5 % (11.5-14.5); White Blood Cell Count 4.1 10^3/uL (4.8-10.8)
[2023-09-20 15:16] LABS: Absolute Neutrophils -Man Diff 2.6 10^3/uL (1.4-6.5); Anisocytosis 1+; Band Neutrophils 3 % (0-3); Lymphocytes 19 % (20-51); Macrocytosis 1+; Monocytes 16 % (2-9); Myelocytes 1 % (-); Normal RBC Morphology No; Platelets Checked Yes; Polychromasia 1+; Segmented Neutrophils 61 % (42-75); Total Cells Counted 100
== END ==
LOC: OIDL 13:56
PROVIDERS: ATTENDING PHYSICIAN Internal Medicine Hematology & Oncology
DX: D63.1 Anemia in chronic kidney disease (principal)
CPT/HCPCS: 85025

== ENCOUNTER → 2023-09-27 10:30 | Outpatient (REF) | payer MEDICARE, OTHER, SELFPAY ==
[2023-09-27 11:38] LABS: % Basophils 1.2 % (0-2); % Eosinophils 1.7 % (0-6); % Immature Granulocytes 1.5 % (0-0.5); % Lymphocytes 10.7 % (20.5-51.1); % Monocytes 19.5 % (1.7-9.3); % Neutrophils 65.4 % (42.2-75.2); Absolute Basophils 0.1 10^3/uL (0-0.2); Absolute Eosinophils 0.1 10^3/uL (0-0.7); Absolute Immature Granulocytes 0.1 10^3/uL (0-0.05); Absolute Lymphocytes 0.7 10^3/uL (1.2-3.4); Absolute Monocytes 1.3 10^3/uL (0.1-0.6); Absolute Neutrophils 4.4 10^3/uL (1.4-6.5); Hematocrit 29.9 % (37.0-47.0); Hemoglobin 9.9 g/dL (12.0-16.0); Mean Corp Hgb Conc. 33.1 g/dL (33.0-37.0); Mean Corpuscular Hgb 40.9 pg (27.0-31.0); Mean Corpuscular Volume 123.6 fL (81.0-99.0); Nucleated Red Blood Cells % 0.3 %; Platelet Count 329 10^3/uL (130-400); Red Blood Cell Count 2.42 10^6/uL (4.20-5.40); Red Cell Dist. Width 16.1 % (11.5-14.5); White Blood Cell Count 6.7 10^3/uL (4.8-10.8)
[2023-09-27 13:17] LABS: Iron 65 ug/dl (37-170)
[2023-09-27 13:27] LABS: Percent Saturation 33 % (20-50); Total Iron Binding Capacity 195 ug/dl (265-497)
== END ==
LOC: REG 10:30
PROVIDERS: ATTENDING PHYSICIAN Internal Medicine Hematology & Oncology; FAMILY PHYSICIAN Internal Medicine
DX: D63.1 Anemia in chronic kidney disease (principal); D50.0 Iron deficiency anemia secondary to blood loss (chronic); D72.829 Elevated white blood cell count, unspecified; R71.8 Other abnormality of red blood cells; D64.9 Anemia, unspecified; I26.99 Other pulmonary embolism without acute cor pulmonale
CPT/HCPCS: 36415; 82728; 83540; 83550; 85025

== ENCOUNTER → 2023-10-04 10:36 | Outpatient (REF) | payer MEDICARE, OTHER, SELFPAY ==
[2023-10-04 12:10] LABS: % Immature Granulocytes 1.5 % (0-0.5); % Monocytes 12.4 % (1.7-9.3); % Neutrophils 72.1 % (42.2-75.2); Absolute Basophils 0.1 10^3/uL (0-0.2); Absolute Eosinophils 0.3 10^3/uL (0-0.7); Absolute Immature Granulocytes 0.2 10^3/uL (0-0.05); Absolute Monocytes 1.2 10^3/uL (0.1-0.6); Absolute Neutrophils 7.1 10^3/uL (1.4-6.5); Hematocrit 32.6 % (37.0-47.0); Hemoglobin 10.8 g/dL (12.0-16.0); Mean Corp Hgb Conc. 33.1 g/dL (33.0-37.0); Mean Corpuscular Hgb 39.4 pg (27.0-31.0); Mean Platelet Volume 9.9 fL (7.4-10.4); Nucleated Red Blood Cells % 0 %; Platelet Count 291 10^3/uL (130-400); Red Blood Cell Count 2.74 10^6/uL (4.20-5.40); Red Cell Dist. Width 15.8 % (11.5-14.5); White Blood Cell Count 9.8 10^3/uL (4.8-10.8)
[2023-10-04 12:32] LABS: Iron 98 ug/dl (37-170)
== END ==
LOC: REG 10:36
PROVIDERS: ATTENDING PHYSICIAN Internal Medicine Hematology & Oncology; FAMILY PHYSICIAN Internal Medicine
DX: D63.1 Anemia in chronic kidney disease (principal); D50.0 Iron deficiency anemia secondary to blood loss (chronic); D72.829 Elevated white blood cell count, unspecified; R71.8 Other abnormality of red blood cells; D64.9 Anemia, unspecified; I26.99 Other pulmonary embolism without acute cor pulmonale
CPT/HCPCS: 36415; 82728; 83540; 85025

== ENCOUNTER → 2023-10-12 10:24 | Outpatient (REF) | payer MEDICARE, OTHER, SELFPAY ==
[2023-10-12 12:24] LABS: % Basophils 1.1 % (0-2); % Eosinophils 4.7 % (0-6); % Immature Granulocytes 1.5 % (0-0.5); % Monocytes 9.3 % (1.7-9.3); % Neutrophils 72.4 % (42.2-75.2); Absolute Basophils 0.1 10^3/uL (0-0.2); Absolute Eosinophils 0.6 10^3/uL (0-0.7); Absolute Immature Granulocytes 0.2 10^3/uL (0-0.05); Absolute Lymphocytes 1.4 10^3/uL (1.2-3.4); Absolute Monocytes 1.2 10^3/uL (0.1-0.6); Hematocrit 36.4 % (37.0-47.0); Mean Corpuscular Hgb 39.6 pg (27.0-31.0); Mean Corpuscular Volume 120.1 fL (81.0-99.0); Mean Platelet Volume 9.9 fL (7.4-10.4); Nucleated Red Blood Cells % 0 %; Platelet Count 282 10^3/uL (130-400); Red Blood Cell Count 3.03 10^6/uL (4.20-5.40); Red Cell Dist. Width 15.7 % (11.5-14.5); Reticulocyte Count 4.7 % (0.4-2.8); White Blood Cell Count 12.4 10^3/uL (4.8-10.8)
[2023-10-12 12:37] LABS: D-Dimer 0.48 ug/mlFEU (0.00-0.50)
[2023-10-12 12:49] LABS: Urine Albumin Negative (Neg - Trace); Urine Bilirubin Negative (Negative); Urine Character Clear (Clear); Urine Color Straw; Urine Glucose Negative (Negative); Urine Ketone Negative (Negative); Urine Leukocyte Negative (Negative); Urine Nitrite Negative (Negative); Urine Occult Blood Negative (Negative); Urine Urobilinogen Negative (Neg - 1+)
[2023-10-12 13:11] LABS: Glycohemoglobin (HgbA1c) 5.6 % (4.0-5.6)
[2023-10-12 13:16] LABS: Erythrocyte Sed Rate 35 mm/hour (0-20)
[2023-10-12 13:44] LABS: ALT (SGPT) 35 U/L (0-35); AST (SGOT) 34 U/L (14-36); Albumin 3.9 g/dl (3.5-5.0); Alkaline Phosphatase 154 U/L (38-126); Blood Urea Nitrogen 18 mg/dl (7-17); Calcium 9.9 mg/dl (8.4-10.2); Carbon Dioxide 23 mmol/L (22-30); Chloride 107 mmol/L (98-107); Glucose 121 mg/dl (70-99); HDL Cholesterol 68 mg/dl; LDL Cholesterol, Calculated 130 mg/dl; Potassium 4.9 mmol/L (3.5-5.1); Sodium 140 mmol/L (135-145); Total Bilirubin 0.4 mg/dl (0.2-1.3); Total Cholesterol 261 mg/dl (50-199); Total Protein 6.4 g/dl (6.3-8.2); Triglyceride 318 mg/dl (10-149); Very Low Density Lipoprotein 63 mg/dl (0-30)
[2023-10-12 14:39] LABS: Vitamin B12 851 pg/ml (239-931)
[2023-10-12 15:28] LABS: Protein/creatinine Ratio 0.6; Urine Protein 15 mg/dl
[2023-10-14 00:04] LABS: Complement C3 169 mg/dl (88-165)
[2023-10-14 01:39] LABS: Myeloperoxidase Antibody 30 AU/mL (0-19); Serine Protease-3, IgG 0 AU/mL (0-19)
== END ==
LOC: REG 10:24
PROVIDERS: ATTENDING PHYSICIAN Internal Medicine Hematology & Oncology; FAMILY PHYSICIAN Nurse Practitioner Family; REFERRING PHYSICIAN Internal Medicine Rheumatology
DX: E11.65 Type 2 diabetes mellitus with hyperglycemia (principal); E78.2 Mixed hyperlipidemia; L92.9 Granulomatous disorder of the skin and subcutaneous tissue, unspecified; M1A.9XX0 Chronic gout, unspecified, without tophus (tophi); M31.7 Microscopic polyangiitis; M47.816 Spondylosis without myelopathy or radiculopathy, lumbar region; M79.7 Fibromyalgia; M81.0 Age-related osteoporosis without current pathological fracture; R20.0 Anesthesia of skin; D63.1 Anemia in chronic kidney disease; D50.0 Iron deficiency anemia secondary to blood loss (chronic); D72.829 Elevated white blood cell count, unspecified; R71.8 Other abnormality of red blood cells; D64.9 Anemia, unspecified; I26.99 Other pulmonary embolism without acute cor pulmonale
CPT/HCPCS: 36415; 80053; 80061; 81003; 82570; 82607; 83036; 83516; 84156; 85025; 85045; 85379; 85652; 86140; 86160

== ENCOUNTER → 2023-10-18 10:51 | Outpatient (REF) | payer MEDICARE, OTHER, SELFPAY ==
[2023-10-18 12:02] LABS: % Immature Granulocytes 0.7 % (0-0.5); % Lymphocytes 9.5 % (20.5-51.1); % Monocytes 8.8 % (1.7-9.3); Absolute Basophils 0.1 10^3/uL (0-0.2); Absolute Eosinophils 0.6 10^3/uL (0-0.7); Absolute Immature Granulocytes 0.1 10^3/uL (0-0.05); Absolute Lymphocytes 1.2 10^3/uL (1.2-3.4); Absolute Monocytes 1.1 10^3/uL (0.1-0.6); Absolute Neutrophils 9.3 10^3/uL (1.4-6.5); Hematocrit 35.9 % (37.0-47.0); Hemoglobin 11.8 g/dL (12.0-16.0); Mean Corp Hgb Conc. 32.9 g/dL (33.0-37.0); Mean Corpuscular Hgb 38.7 pg (27.0-31.0); Mean Corpuscular Volume 117.7 fL (81.0-99.0); Nucleated Red Blood Cells % 0 %; Platelet Count 237 10^3/uL (130-400); Red Blood Cell Count 3.05 10^6/uL (4.20-5.40); Red Cell Dist. Width 15.7 % (11.5-14.5); White Blood Cell Count 12.4 10^3/uL (4.8-10.8)
[2023-10-18 12:57] LABS: Iron 106 ug/dl (37-170)
[2023-10-18 13:06] LABS: Percent Saturation 46 % (20-50); Total Iron Binding Capacity 228 ug/dl (265-497)
== END ==
LOC: REG 10:51
PROVIDERS: ATTENDING PHYSICIAN Internal Medicine Hematology & Oncology; FAMILY PHYSICIAN Internal Medicine
DX: D63.1 Anemia in chronic kidney disease (principal); D50.0 Iron deficiency anemia secondary to blood loss (chronic); D72.829 Elevated white blood cell count, unspecified; R71.8 Other abnormality of red blood cells; D64.9 Anemia, unspecified; I26.99 Other pulmonary embolism without acute cor pulmonale
CPT/HCPCS: 36415; 82728; 83540; 83550; 85025

== ENCOUNTER → 2023-10-25 10:37 | Outpatient (REF) | payer MEDICARE, OTHER, SELFPAY ==
[2023-10-25 12:56] LABS: % Basophils 0.7 % (0-2); % Eosinophils 5.9 % (0-6); % Immature Granulocytes 0.6 % (0-0.5); % Lymphocytes 16.2 % (20.5-51.1); % Monocytes 10.8 % (1.7-9.3); % Neutrophils 65.8 % (42.2-75.2); Absolute Basophils 0.1 10^3/uL (0-0.2); Absolute Eosinophils 0.6 10^3/uL (0-0.7); Absolute Immature Granulocytes 0.1 10^3/uL (0-0.05); Absolute Lymphocytes 1.7 10^3/uL (1.2-3.4); Absolute Monocytes 1.2 10^3/uL (0.1-0.6); Absolute Neutrophils 7.1 10^3/uL (1.4-6.5); Hematocrit 37.8 % (37.0-47.0); Hemoglobin 12.3 g/dL (12.0-16.0); Mean Corp Hgb Conc. 32.5 g/dL (33.0-37.0); Mean Corpuscular Hgb 38.1 pg (27.0-31.0); Mean Platelet Volume 9.8 fL (7.4-10.4); Nucleated Red Blood Cells % 0 %; Platelet Count 190 10^3/uL (130-400); Red Blood Cell Count 3.23 10^6/uL (4.20-5.40); Red Cell Dist. Width 14.9 % (11.5-14.5); White Blood Cell Count 10.7 10^3/uL (4.8-10.8)
[2023-10-25 14:17] LABS: Blood Urea Nitrogen 22 mg/dl (7-17); Calcium 9.6 mg/dl (8.4-10.2); Carbon Dioxide 21 mmol/L (22-30); Chloride 106 mmol/L (98-107); Glucose 98 mg/dl (70-99); Iron 104 ug/dl (37-170); Potassium 4.2 mmol/L (3.5-5.1); Sodium 136 mmol/L (135-145); eGFR > 60.00
== END ==
LOC: RAD 10:37
PROVIDERS: ATTENDING PHYSICIAN Internal Medicine Hematology & Oncology; FAMILY PHYSICIAN Internal Medicine
DX: D64.9 Anemia, unspecified (principal); D72.829 Elevated white blood cell count, unspecified; D50.0 Iron deficiency anemia secondary to blood loss (chronic); D63.1 Anemia in chronic kidney disease
CPT/HCPCS: 36415; 71275; 80048; 82728; 83540; 85025; Q9967

== ENCOUNTER → 2023-11-02 08:49 | Outpatient (REF) | payer MEDICARE, OTHER, SELFPAY ==
[2023-11-02 11:39] LABS: % Basophils 0.7 % (0-2); % Eosinophils 3.5 % (0-6); % Immature Granulocytes 0.3 % (0-0.5); % Monocytes 10.5 % (1.7-9.3); Absolute Basophils 0.1 10^3/uL (0-0.2); Absolute Eosinophils 0.3 10^3/uL (0-0.7); Absolute Lymphocytes 1.6 10^3/uL (1.2-3.4); Absolute Neutrophils 6.5 10^3/uL (1.4-6.5); Hematocrit 37.6 % (37.0-47.0); Hemoglobin 12.2 g/dL (12.0-16.0); Mean Corp Hgb Conc. 32.4 g/dL (33.0-37.0); Mean Corpuscular Hgb 37.2 pg (27.0-31.0); Mean Corpuscular Volume 114.6 fL (81.0-99.0); Mean Platelet Volume 10.2 fL (7.4-10.4); Nucleated Red Blood Cells % 0 %; Platelet Count 171 10^3/uL (130-400); Red Blood Cell Count 3.28 10^6/uL (4.20-5.40); Red Cell Dist. Width 14.8 % (11.5-14.5); White Blood Cell Count 9.5 10^3/uL (4.8-10.8)
[2023-11-02 11:40] LABS: Iron 110 ug/dl (37-170)
[2023-11-02 11:50] LABS: Percent Saturation 46 % (20-50); Total Iron Binding Capacity 235 ug/dl (265-497)
== END ==
LOC: HWLAB 08:49
PROVIDERS: ATTENDING PHYSICIAN Internal Medicine Hematology & Oncology; FAMILY PHYSICIAN Internal Medicine
DX: D63.1 Anemia in chronic kidney disease (principal); D50.0 Iron deficiency anemia secondary to blood loss (chronic); D72.829 Elevated white blood cell count, unspecified; R71.8 Other abnormality of red blood cells; D64.9 Anemia, unspecified; I26.99 Other pulmonary embolism without acute cor pulmonale
CPT/HCPCS: 36415; 82728; 83540; 83550; 85025

== ENCOUNTER → 2023-11-29 12:50 | Outpatient (REF) | payer MEDICARE, OTHER, SELFPAY | LOC: HWRAD 12:50 | PROVIDERS: ATTENDING PHYSICIAN Internal Medicine Critical Care Medicine; FAMILY PHYSICIAN Internal Medicine; OTHER PHYSICIAN Internal Medicine Hematology & Oncology; OTHER PHYSICIAN Internal Medicine Rheumatology; OTHER PHYSICIAN Specialist; REFERRING PHYSICIAN Internal Medicine Cardiovascular Disease | DX: Z86.711 Personal history of pulmonary embolism (principal); I26.99 Other pulmonary embolism without acute cor pulmonale | CPT/HCPCS: 93970 ==

== ENCOUNTER → 2023-12-14 09:43 | Outpatient (REF) | payer MEDICARE, OTHER, SELFPAY ==
[2023-12-14 12:07] LABS: Urine Albumin 1+ (Neg - Trace); Urine Bilirubin Negative (Negative); Urine Character Clear (Clear); Urine Color Yellow; Urine Glucose Negative (Negative); Urine Ketone Trace (Negative); Urine Leukocyte 2+ (Negative); Urine Nitrite Negative (Negative); Urine Occult Blood Trace (Negative); Urine Urobilinogen Negative (Neg - 1+)
[2023-12-14 12:08] LABS: % Basophils 0.7 % (0-2); % Immature Granulocytes 1.1 % (0-0.5); % Lymphocytes 15.1 % (20.5-51.1); % Monocytes 11.1 % (1.7-9.3); Absolute Basophils 0.1 10^3/uL (0-0.2); Absolute Eosinophils 0.2 10^3/uL (0-0.7); Absolute Immature Granulocytes 0.1 10^3/uL (0-0.05); Absolute Lymphocytes 1.5 10^3/uL (1.2-3.4); Absolute Monocytes 1.1 10^3/uL (0.1-0.6); Absolute Neutrophils 7.1 10^3/uL (1.4-6.5); Hematocrit 40.4 % (37.0-47.0); Hemoglobin 13.5 g/dL (12.0-16.0); Mean Corp Hgb Conc. 33.4 g/dL (33.0-37.0); Mean Corpuscular Hgb 35.8 pg (27.0-31.0); Mean Corpuscular Volume 107.2 fL (81.0-99.0); Mean Platelet Volume 9.4 fL (7.4-10.4); Nucleated Red Blood Cells % 0 %; Platelet Count 231 10^3/uL (130-400); Red Blood Cell Count 3.77 10^6/uL (4.20-5.40); Red Cell Dist. Width 14.4 % (11.5-14.5); White Blood Cell Count 10.1 10^3/uL (4.8-10.8)
[2023-12-14 12:44] LABS: ALT (SGPT) 38 U/L (0-35); AST (SGOT) 32 U/L (14-36); Albumin 4.1 g/dl (3.5-5.0); Alkaline Phosphatase 154 U/L (38-126); Blood Urea Nitrogen 17 mg/dl (7-17); Calcium 9.8 mg/dl (8.4-10.2); Carbon Dioxide 24 mmol/L (22-30); Chloride 103 mmol/L (98-107); Glucose 113 mg/dl (70-99); HDL Cholesterol 48 mg/dl; LDL Cholesterol, Calculated 11 mg/dl; Potassium 4.8 mmol/L (3.5-5.1); Sodium 138 mmol/L (135-145); Total Bilirubin 0.5 mg/dl (0.2-1.3); Total Cholesterol 107 mg/dl (50-199); Total Protein 6.4 g/dl (6.3-8.2); Triglyceride 244 mg/dl (10-149); Very Low Density Lipoprotein 48 mg/dl (0-30); eGFR 41.31
[2023-12-14 13:06] LABS: Urine Squamous Cell >30 /LPF (Few)
[2023-12-14 13:07] LABS: Protein/creatinine Ratio 0.2; Urine Bacteria Few (Negative); Urine Protein 47 mg/dl
[2023-12-14 13:08] LABS: Urine Red Blood Cell 0-2 /HPF (0-2); Urine White Cell 26-30 /HPF (0-5)
[2023-12-14 14:09] LABS: Erythrocyte Sed Rate 31 mm/hour (0-20)
[2023-12-15 23:35] LABS: Complement C3 179 mg/dl (88-165)
[2023-12-17 01:53] LABS: Myeloperoxidase Antibody 33 AU/mL (0-19); Serine Protease-3, IgG 0 AU/mL (0-19)
== END ==
LOC: HWLAB 09:43
PROVIDERS: ATTENDING PHYSICIAN Internal Medicine Cardiovascular Disease; FAMILY PHYSICIAN Internal Medicine; REFERRING PHYSICIAN Internal Medicine Rheumatology
DX: L92.9 Granulomatous disorder of the skin and subcutaneous tissue, unspecified (principal); M31.7 Microscopic polyangiitis; M79.7 Fibromyalgia; R79.82 Elevated C-reactive protein (CRP); Z51.81 Encounter for therapeutic drug level monitoring; I10 Essential (primary) hypertension; E78.00 Pure hypercholesterolemia, unspecified
CPT/HCPCS: 36415; 80053; 80061; 81003; 81015; 82570; 83516; 84156; 85025; 85652; 86140; 86160

== ENCOUNTER → 2024-03-06 12:15 | Outpatient (REF) | payer MEDICARE, OTHER, SELFPAY ==
[2024-03-06 16:22] LABS: % Basophils 0.7 % (0-2); % Eosinophils 2.4 % (0-6); % Immature Granulocytes 0.6 % (0-0.5); % Lymphocytes 7.7 % (20.5-51.1); % Neutrophils 81.6 % (42.2-75.2); Absolute Basophils 0.1 10^3/uL (0-0.2); Absolute Eosinophils 0.3 10^3/uL (0-0.7); Absolute Immature Granulocytes 0.1 10^3/uL (0-0.05); Absolute Monocytes 0.9 10^3/uL (0.1-0.6); Absolute Neutrophils 10.9 10^3/uL (1.4-6.5); Hematocrit 41.5 % (37.0-47.0); Hemoglobin 13.6 g/dL (12.0-16.0); Mean Corp Hgb Conc. 32.8 g/dL (33.0-37.0); Mean Corpuscular Hgb 33.7 pg (27.0-31.0); Mean Platelet Volume 9.7 fL (7.4-10.4); Nucleated Red Blood Cells % 0 %; Platelet Count 242 10^3/uL (130-400); Red Blood Cell Count 4.03 10^6/uL (4.20-5.40); Red Cell Dist. Width 14.5 % (11.5-14.5); White Blood Cell Count 13.4 10^3/uL (4.8-10.8)
[2024-03-06 16:24] LABS: Urine Albumin Trace (Neg - Trace); Urine Bilirubin Negative (Negative); Urine Character Clear (Clear); Urine Color Yellow; Urine Glucose Negative (Negative); Urine Ketone Negative (Negative); Urine Leukocyte 2+ (Negative); Urine Nitrite Negative (Negative); Urine Occult Blood Negative (Negative); Urine Urobilinogen Negative (Neg - 1+)
[2024-03-06 17:06] LABS: Urine Bacteria Few (Negative); Urine Squamous Cell >30 /LPF (Few); Urine White Cell 26-30 /HPF (0-5)
[2024-03-06 17:27] LABS: ALT (SGPT) 29 U/L (0-35); AST (SGOT) 28 U/L (14-36); Alkaline Phosphatase 105 U/L (38-126); Blood Urea Nitrogen 17 mg/dl (7-17); Calcium 9.8 mg/dl (8.4-10.2); Carbon Dioxide 25 mmol/L (22-30); Chloride 103 mmol/L (98-107); Glucose 140 mg/dl (70-99); Iron 94 ug/dl (37-170); Potassium 4.2 mmol/L (3.5-5.1); Sodium 140 mmol/L (135-145); Total Bilirubin 0.6 mg/dl (0.2-1.3); Total Protein 6.3 g/dl (6.3-8.2); eGFR 50.48
[2024-03-06 17:38] LABS: Percent Saturation 37 % (20-50); Total Iron Binding Capacity 248 ug/dl (265-497)
[2024-03-06 17:59] LABS: Erythrocyte Sed Rate 20 mm/hour (0-20)
[2024-03-06 19:59] LABS: Protein/creatinine Ratio 0.1; Urine Protein 20 mg/dl
[2024-03-06 22:12] LABS: Complement C3 160 mg/dl (88-165)
== END ==
LOC: HWLAB 12:15
PROVIDERS: ATTENDING PHYSICIAN Internal Medicine Rheumatology; FAMILY PHYSICIAN Internal Medicine; REFERRING PHYSICIAN Nurse Practitioner
DX: D50.9 Iron deficiency anemia, unspecified (principal); L92.9 Granulomatous disorder of the skin and subcutaneous tissue, unspecified; M1A.9XX0 Chronic gout, unspecified, without tophus (tophi); M31.7 Microscopic polyangiitis; M47.816 Spondylosis without myelopathy or radiculopathy, lumbar region; M79.7 Fibromyalgia; M81.0 Age-related osteoporosis without current pathological fracture; R20.0 Anesthesia of skin; D62 Acute posthemorrhagic anemia
CPT/HCPCS: 36415; 80053; 81003; 81015; 82570; 82728; 83516; 83540; 83550; 84156; 85025; 85652; 86140; 86160

== ENCOUNTER → 2024-06-26 12:18 | Outpatient (REF) | payer MEDICARE, OTHER, SELFPAY ==
[2024-06-26 15:45] LABS: % Basophils 0.9 % (0-2); % Eosinophils 6.7 % (0-6); % Immature Granulocytes 0.5 % (0-0.5); % Lymphocytes 19.1 % (20.5-51.1); % Monocytes 11.3 % (1.7-9.3); % Neutrophils 61.5 % (42.2-75.2); Absolute Basophils 0.1 10^3/uL (0-0.2); Absolute Eosinophils 0.7 10^3/uL (0-0.7); Absolute Immature Granulocytes 0.1 10^3/uL (0-0.05); Absolute Lymphocytes 1.9 10^3/uL (1.2-3.4); Absolute Monocytes 1.1 10^3/uL (0.1-0.6); Absolute Neutrophils 6.1 10^3/uL (1.4-6.5); Hematocrit 44.4 % (37.0-47.0); Hemoglobin 14.7 g/dL (12.0-16.0); Mean Corp Hgb Conc. 33.1 g/dL (33.0-37.0); Mean Corpuscular Hgb 31.5 pg (27.0-31.0); Mean Corpuscular Volume 95.1 fL (81.0-99.0); Mean Platelet Volume 9.1 fL (7.4-10.4); Nucleated Red Blood Cells % 0 %; Platelet Count 276 10^3/uL (130-400); Red Blood Cell Count 4.67 10^6/uL (4.20-5.40); Red Cell Dist. Width 15.6 % (11.5-14.5)
[2024-06-26 15:50] LABS: ALT (SGPT) 28 U/L (0-35); AST (SGOT) 30 U/L (14-36); Albumin 4.1 g/dl (3.5-5.0); Alkaline Phosphatase 133 U/L (38-126); Blood Urea Nitrogen 15 mg/dl (7-17); Calcium 9.7 mg/dl (8.4-10.2); Carbon Dioxide 26 mmol/L (22-30); Chloride 99 mmol/L (98-107); Glucose 118 mg/dl (70-99); HDL Cholesterol 62 mg/dl; LDL Cholesterol, Calculated 167 mg/dl; Potassium 4.5 mmol/L (3.5-5.1); Sodium 136 mmol/L (135-145); Total Bilirubin 0.7 mg/dl (0.2-1.3); Total Cholesterol 280 mg/dl (50-199); Total Protein 6.4 g/dl (6.3-8.2); Triglyceride 257 mg/dl (10-149); Very Low Density Lipoprotein 51 mg/dl (0-30); eGFR 56.25
[2024-06-26 15:57] LABS: Complement C3 160 mg/dl (88-165)
[2024-06-26 17:06] LABS: Urine Albumin 2+ (Neg - Trace); Urine Bilirubin Negative (Negative); Urine Character Cloudy (Clear); Urine Color Yellow; Urine Glucose Negative (Negative); Urine Ketone Negative (Negative); Urine Leukocyte 3+ (Negative); Urine Nitrite Negative (Negative); Urine Occult Blood 1+ (Negative); Urine Urobilinogen Negative (Neg - 1+)
[2024-06-26 17:35] LABS: Urine Squamous Cell >30 /LPF (Few)
[2024-06-26 17:38] LABS: Urine Bacteria Moderate (Negative); Urine White Cell 70-80 /HPF (0-5)
[2024-06-26 18:25] LABS: Erythrocyte Sed Rate 21 mm/hour (0-20)
[2024-06-26 19:39] LABS: Urine Protein 8 mg/dl
[2024-06-27 08:43] LABS: Glycohemoglobin (HgbA1c) 6.2 % (4.0-5.6)
[2024-06-27 17:52] LABS: Free T4 1.71 ng/dl (0.78-2.19); Vitamin D, 25-OH*** 44.3 ng/mL (30-80)
[2024-06-27 18:06] LABS: TSH 1.77 uIU/ml (0.47-4.68)
[2024-06-27 18:26] LABS: Vitamin B12 751 pg/ml (239-931)
[2024-06-29 00:37] LABS: Myeloperoxidase Antibody 10 AU/mL (0-19)
== END ==
LOC: HWLAB 12:18
PROVIDERS: ATTENDING PHYSICIAN Internal Medicine Rheumatology; FAMILY PHYSICIAN Internal Medicine; OTHER PHYSICIAN Internal Medicine Cardiovascular Disease; REFERRING PHYSICIAN Specialist
DX: E11.65 Type 2 diabetes mellitus with hyperglycemia (principal); E78.00 Pure hypercholesterolemia, unspecified; E07.9 Disorder of thyroid, unspecified; E53.8 Deficiency of other specified B group vitamins; E55.9 Vitamin D deficiency, unspecified; L92.9 Granulomatous disorder of the skin and subcutaneous tissue, unspecified; M1A.9XX0 Chronic gout, unspecified, without tophus (tophi); M31.7 Microscopic polyangiitis; M47.816 Spondylosis without myelopathy or radiculopathy, lumbar region; M79.7 Fibromyalgia; M81.0 Age-related osteoporosis without current pathological fracture; R20.0 Anesthesia of skin
CPT/HCPCS: 36415; 80053; 80061; 81003; 81015; 82306; 82570; 82607; 83036; 83516; 84156; 84439; 84443; 85025; 85652; 86140; 86160

== ENCOUNTER → 2024-10-12 11:24 | Outpatient (REF) | payer MEDICARE, OTHER, SELFPAY ==
[2024-10-12 15:29] LABS: Hematocrit 46.7 % (37.0-47.0); Hemoglobin 15.2 g/dL (12.0-16.0); Mean Corp Hgb Conc. 32.5 g/dL (33.0-37.0); Mean Corpuscular Hgb 31.7 pg (27.0-31.0); Mean Corpuscular Volume 97.5 fL (81.0-99.0); Mean Platelet Volume 9.6 fL (7.4-10.4); Platelet Count 300 10^3/uL (130-400); Red Blood Cell Count 4.79 10^6/uL (4.20-5.40); Red Cell Dist. Width 14.4 % (11.5-14.5); White Blood Cell Count 8.9 10^3/uL (4.8-10.8)
[2024-10-12 15:37] LABS: ALT (SGPT) 27 U/L (0-35); AST (SGOT) 25 U/L (14-36); Albumin 4.1 g/dl (3.5-5.0); Alkaline Phosphatase 108 U/L (38-126); Blood Urea Nitrogen 21 mg/dl (7-17); Calcium 9.9 mg/dl (8.4-10.2); Carbon Dioxide 28 mmol/L (22-30); Chloride 108 mmol/L (98-107); Glucose 103 mg/dl (70-99); Potassium 4.9 mmol/L (3.5-5.1); Sodium 142 mmol/L (135-145); Total Bilirubin 0.9 mg/dl (0.2-1.3); Total Protein 6.5 g/dl (6.3-8.2); eGFR 56.25
[2024-10-12 15:43] LABS: Urine Albumin 1+ (Neg - Trace); Urine Bilirubin Negative (Negative); Urine Character Slightly Cloudy (Clear); Urine Color Yellow; Urine Glucose Negative (Negative); Urine Ketone Negative (Negative); Urine Leukocyte 3+ (Negative); Urine Nitrite Negative (Negative); Urine Occult Blood 1+ (Negative); Urine Urobilinogen Negative (Neg - 1+)
[2024-10-12 16:02] LABS: Urine Squamous Cell 0-2 /LPF (Few)
[2024-10-12 16:03] LABS: Urine Bacteria Many (Negative); Urine White Cell 90-100 /HPF (0-5)
[2024-10-12 16:20] LABS: Protein/creatinine Ratio 0.1; Urine Protein 10 mg/dl
[2024-10-12 16:28] LABS: Erythrocyte Sed Rate 24 mm/hour (0-20)
[2024-10-15 01:29] LABS: Myeloperoxidase Antibody 12 AU/mL (0-19)
== END ==
LOC: HWLAB 11:24
PROVIDERS: ATTENDING PHYSICIAN Internal Medicine Rheumatology; FAMILY PHYSICIAN Internal Medicine; OTHER PHYSICIAN Specialist; REFERRING PHYSICIAN Internal Medicine Critical Care Medicine
DX: E07.9 Disorder of thyroid, unspecified (principal); E53.8 Deficiency of other specified B group vitamins; E55.9 Vitamin D deficiency, unspecified; L92.9 Granulomatous disorder of the skin and subcutaneous tissue, unspecified; M1A.9XX0 Chronic gout, unspecified, without tophus (tophi); M31.7 Microscopic polyangiitis; M47.816 Spondylosis without myelopathy or radiculopathy, lumbar region; M79.7 Fibromyalgia; M81.0 Age-related osteoporosis without current pathological fracture; R20.0 Anesthesia of skin
CPT/HCPCS: 36415; 80053; 81003; 81015; 82570; 83516; 84156; 85027; 85652; 86140; 86235

== ENCOUNTER → 2025-01-11 11:18 | Outpatient (REF) | payer MEDICARE, OTHER, SELFPAY ==
[2025-01-11 15:38] LABS: Urine Character Clear (Clear)
[2025-01-11 15:41] LABS: Hematocrit 45.6 % (37.0-47.0); Hemoglobin 14.7 g/dL (12.0-16.0); Mean Corp Hgb Conc. 32.2 g/dL (33.0-37.0); Mean Corpuscular Volume 95.8 fL (81.0-99.0); Nucleated Red Blood Cells % 0 %; Platelet Count 307 10^3/uL (130-400); Red Cell Dist. Width 14.8 % (11.5-14.5)
[2025-01-11 15:55] LABS: ALT (SGPT) 21 U/L (0-35); AST (SGOT) 24 U/L (14-36); Albumin 4.1 g/dl (3.5-5.0); Alkaline Phosphatase 94 U/L (38-126); Blood Urea Nitrogen 19 mg/dl (7-17); Calcium 9.5 mg/dl (8.4-10.2); Carbon Dioxide 28 mmol/L (22-30); Chloride 104 mmol/L (98-107); Glucose 96 mg/dl (70-99); Potassium 4.5 mmol/L (3.5-5.1); Sodium 135 mmol/L (135-145); Total Protein 6.4 g/dl (6.3-8.2); eGFR 56.25
[2025-01-11 15:56] LABS: Uric Acid 8.0 mg/dl (2.5-6.2)
[2025-01-11 16:02] LABS: C-Reactive Protein < 5.00 mg/L (0.0-10.00)
[2025-01-11 16:20] LABS: Vitamin D, 25-OH*** 40.7 ng/mL (30-80)
[2025-01-11 16:28] LABS: Urine Squamous Cell 0-2 /LPF (Few); Urine Urothelial Cell 0-2 /LPF (FEW)
[2025-01-11 16:29] LABS: Urine Red Blood Cell 0-2 /HPF (0-2); Urine White Cell 16-20 /HPF (0-5)
[2025-01-11 16:33] LABS: TSH 1.41 uIU/ml (0.47-4.68)
[2025-01-11 16:53] LABS: Vitamin B12 581 pg/ml (239-931)
== END ==
LOC: HWLAB 11:18
PROVIDERS: ATTENDING PHYSICIAN Specialist; FAMILY PHYSICIAN Internal Medicine
DX: M31.7 Microscopic polyangiitis (principal); E07.9 Disorder of thyroid, unspecified; E53.8 Deficiency of other specified B group vitamins; E55.9 Vitamin D deficiency, unspecified; I77.6 Arteritis, unspecified; L92.9 Granulomatous disorder of the skin and subcutaneous tissue, unspecified; M19.041 Primary osteoarthritis, right hand; M19.042 Primary osteoarthritis, left hand; M1A.9XX0 Chronic gout, unspecified, without tophus (tophi); M47.816 Spondylosis without myelopathy or radiculopathy, lumbar region; M54.32 Sciatica, left side; M79.7 Fibromyalgia; M81.0 Age-related osteoporosis without current pathological fracture; R20.0 Anesthesia of skin; R53.81 Other malaise; R60.0 Localized edema; R79.82 Elevated C-reactive protein (CRP); Z68.42 Body mass index [BMI] 45.0-49.9, adult
CPT/HCPCS: 36415; 80053; 81003; 81015; 82306; 82570; 82607; 84156; 84439; 84443; 84550; 85025; 85652; 86140

== ENCOUNTER → 2025-03-19 10:38 | Outpatient (REF) | payer MEDICARE, OTHER, SELFPAY ==
[2025-03-19 15:02] LABS: ALT (SGPT) 29 U/L (0-35); AST (SGOT) 30 U/L (14-36); Albumin 3.8 g/dl (3.5-5.0); Alkaline Phosphatase 116 U/L (38-126); Blood Urea Nitrogen 26 mg/dl (7-17); Calcium 9.7 mg/dl (8.4-10.2); Carbon Dioxide 31 mmol/L (22-30); Chloride 102 mmol/L (98-107); Glucose 91 mg/dl (70-99); Potassium 4.7 mmol/L (3.5-5.1); Sodium 137 mmol/L (135-145); Total Protein 6.3 g/dl (6.3-8.2); eGFR 56.25
[2025-03-20 09:09] LABS: Glycohemoglobin (HgbA1c) 5.9 % (4.0-5.9)
== END ==
LOC: HWLAB 10:38
PROVIDERS: ATTENDING PHYSICIAN Internal Medicine; OTHER PHYSICIAN Internal Medicine Rheumatology; REFERRING PHYSICIAN Specialist
DX: I10 Essential (primary) hypertension (principal); M31.7 Microscopic polyangiitis; N18.31 Chronic kidney disease, stage 3a; G47.30 Sleep apnea, unspecified; E11.65 Type 2 diabetes mellitus with hyperglycemia; E11.69 Type 2 diabetes mellitus with other specified complication
CPT/HCPCS: 36415; 80053; 83036